=== PATIENT | female | born 1985 | race Two or more races ===

== ENCOUNTER 2019-12-23 21:17 | Emergency (ER) | payer MEDICAID ==
[2019-12-23 22:12] LABS: HEMATOCRIT 22.6 % (36.0-47.0); MEAN CORPUSCULAR HEMOGLOBIN 44.1 pg (27.0-33.4); MEAN CORPUSCULAR HGB CONC 34.4 g/dL (32.0-36.0); RED BLOOD COUNT 1.76 10^6/uL (3.72-5.28)
[2019-12-23 22:13] LABS: MEAN CORPUSCULAR VOLUME 128 fl (80-97)
[2019-12-23 22:15] LABS: HEMOGLOBIN 7.8 g/dL (12.0-15.5)
[2019-12-23 22:16] LABS: PLATELET COUNT 87 10^3/uL (150-450)
[2019-12-23 22:23] LABS: ABSOLUTE LYMPHOCYTES# (MANUAL) 1.5 10^3/uL (0.5-4.7); ABSOLUTE MONOCYTES # (MANUAL) 1.3 10^3/uL (0.1-1.4); BAND NEUTROPHILS % (MANUAL) 1 % (3-5); BASOPHILS % (MANUAL) 0 % (0-2); EOSINOPHILS % (MANUAL) 1 % (0-6); LYMPHOCYTES % (MANUAL) 7 % (13-45); MONOCYTES % (MANUAL) 6 % (3-13); NUCLEATED RED BLOOD CELLS 1 /100 WBC (0); SEGMENTED NEUTROPHILS % (MAN) 85 % (42-78); TOTAL CELLS COUNTED 100
[2019-12-23 22:24] LABS: ANISOCYTOSIS 2+; POIKILOCYTOSIS 1+; POLYCHROMASIA 1+
[2019-12-23 22:25] LABS: OVALOCYTES 1+; PLATELET COMMENT DECREASED; TEAR DROP CELLS SLIGHT
[2019-12-23 22:31] LABS: ALKALINE PHOSPHATASE 116 U/L (38-126); ANION GAP 11 (5-19); ASPARTATE AMINO TRANSFERASE 117 U/L (14-36); BILIRUBIN,DIRECT 17.6 mg/dL (0.0-0.4); BILIRUBIN,TOTAL 22.7 mg/dL (0.2-1.3); BLOOD UREA NITROGEN 15 mg/dL (7-20); CALCIUM 7.8 mg/dL (8.4-10.2); CARBON DIOXIDE 28 mmol/L (22-30); CHLORIDE 86 mmol/L (98-107); GLUCOSE 129 mg/dL (75-110); TOTAL PROTEIN 8.3 g/dL (6.3-8.2)
[2019-12-23] MEDS ORDERED: MORPHINE SULFATE 10 MG/ML INJ IV ONE (22:39)
[2019-12-23 22:46] LABS: POTASSIUM 2.6 mmol/L (3.6-5.0)
[2019-12-23 22:50] LABS: INTERNATIONAL RATION (INR) 2.13; PROTHROMBIN TIME 23.9 SEC (11.4-15.4)
[2019-12-23] MEDS ORDERED: POTASSI CL 20 MEQ/50 ML RIDER 20 MEQ/50 ML RTUPB IV SCH (23:30)
[2019-12-23] MEDS ORDERED: NORMAL SALINE 250 ML IV PRN ×2 (23:31)
[2019-12-23] MEDS ORDERED: CEFTRIAXONE 2 GM/D5W RTU 2 GM/50 ML RTUPB IV ONE (23:33)
--- NOTE | 2019-12-23 23:41 | RADIOLOGY REPORT (SQ) ---
CLINICAL INDICATION: distention/pain. . TECHNIQUE: Noncontrast spiral axial CT imaging was obtained of the abdomen and pelvis with multiplanar reconstructions. This exam was performed according to our departmental dose-optimization program, which includes automated exposure control, adjustment of the mA and/or kV according to patient size and/or use of iterative reconstruction techniques. COMPARISON: None available. CORRELATION: None. FINDINGS: Abdomen: The lung bases definite mild interstitial prominence. Dependent airspace disease particularly right lung base has appearance of atelectasis.. The heart is enlarged. No evidence of pleural or pericardial fluid. The liver is of low-attenuation and heterogeneous. It is enlarged at 20.1 cm craniocaudad.. The gallbladder contains hyperdense material. Milk of calcium (limy bile) or vicarious excretion of intravascular contrast can have a similar appearance. No inflammatory change. The pancreas is of grossly normal contour on this noncontrast examination. The spleen is top normal at 14.6 cm craniocaudad. The adrenals are poorly seen. The kidneys appear grossly normal without evidence of urolithiasis or hydronephrosis. There is no evidence of free air. Significant ascites.. No bulky adenopathy. Abdominal aorta is nonaneurysmal. Pelvis: The bowel is nonobstructed. The bowel is unopacified with oral contrast. Pelvic contents are unremarkable. The appendix is not seen.. Visualized bones are unremarkable. IMPRESSION: Imaging is degraded by patient motion, with resultant artifact. The best possible images were obtained. Large amount of ascites. Medical hepatic disease, presumed steatosis. Hepatomegaly. Borderline splenomegaly Gallbladder demonstrates hyperdense material without inflammatory change.Milk of calcium (limy bile) or vicarious excretion of intravascular contrast can have a similar appearance. . Has there been recent administration of intravascular contrast?
[2019-12-24 00:39] LABS: APPEARANCE,URINE SLIGHTLY-CLOUDY; BILIRUBIN,URINE MODERATE (NEGATIVE); COLOR,URINE AMBER; GLUCOSE, URINE 50 mg/dL (NEGATIVE); KETONES,URINE NEGATIVE (NEGATIVE); LEUKOCYTE ESTERASE,URINE TRACE (NEGATIVE); NITRITE,URINE POSITIVE (NEGATIVE); PROTEIN,URINE 30 mg/dL (NEGATIVE); URINE SPECIFIC GRAVITY 1.014
--- NOTE | 2019-12-24 00:46 | ER Document Report ---
ED General - General Chief Complaint: Abdominal Swelling Stated Complaint: ABDOMINAL PAIN Time Seen by Provider: 12/23/19 22:24 Mode of Arrival: Ambulatory Information source: Patient TRAVEL OUTSIDE OF THE [place] IN LAST 30 DAYS: No - HPI Notes: Patient comes in complaining of abdominal pain. This pain is diffuse. Is worse with movement better with rest. It is a crampy in nature and constant. It is moderate to severe. It does radiate throughout her abdomen. She has had some nausea no significant vomiting or diarrhea. She has noticed that her eyes have become yellow. She states she does drink alcohol approximately twice per week but has not drank recently. She states that her abdomen has been distended and tender for several weeks but she has not seen a physician. No previous history of liver or abdominal problems or surgeries. She denies any excessive Tylenol use. No fevers. - Related Data Allergies/Adverse Reactions: No Known Allergies Allergy (Verified 07/04/15 18:58) Past Medical History - General Information source: Patient - Social History Smoking Status: Current Every Day Smoker Chew tobacco use (# tins/day): No Frequency of alcohol use: Heavy Drug Abuse: None Family History: Reviewed & Not Pertinent - Immunizations Hx Diphtheria, Pertussis, Tetanus Vaccination: No Review of Systems - Review of Systems Constitutional: Malaise, Weakness Gastrointestinal: Abdominal pain, Nausea Skin: Change in color, Change in hair/nails -: Yes All other systems reviewed and negative Physical Exam - Vital signs Vitals: Pulse Ox 92 12/23/19 21:20 Interpretation: Tachycardic - General General appearance: Alert In distress: None - HEENT Head: Normocephalic, Atraumatic Eyes: Scleral icterus Conjunctiva: Icteric Pupils: PERRL - Respiratory Respiratory status: No respiratory distress Chest status: Nontender Breath sounds: Normal Chest palpation: Normal - Cardiovascular Rhythm: Tachycardia Heart sounds: Normal auscultation Murmur: No - Abdominal Inspection: Caput medussa Distension: Distended Bowel sounds: Hypoactive Tenderness: Tender - Back Back: Normal, Nontender - Extremities General upper extremity: Normal inspection, Nontender, Normal color, Normal ROM, Normal temperature General lower extremity: Normal inspection, Nontender, Normal color, Normal ROM, Normal temperature, Normal weight bearing. No: Oli's sign - Neurological Neuro grossly intact: Yes Cognition: Normal Orientation: AAOx4 [place] Coma Scale Eye Opening: Spontaneous [place] Coma Scale Verbal: Oriented [place] Coma Scale Motor: Obeys Commands [place] Coma Scale Total: 15 Speech: Normal Motor strength normal: LUE, RUE, LLE, RLE Sensory: Normal - Psychological Associated symptoms: Normal affect, Normal mood - Skin Skin Temperature: Warm Skin Moisture: Dry Skin Color: Jaundiced Course - Re-evaluation Re-evalutation: 12/24/19 00:48 Patient presents with an obvious distended abdomen with a fluid wave. She is jaundiced. Labs are significant for hypokalemia, anemia, and liver failure with elevated INR. Exam and labs are somewhat equivocal for spontaneous bacterial peritonitis. I favor that her white blood cell count is elevated just because of her alcoholic liver disease however I cannot totally rule out spontaneous bacterial peritonitis. Therefore I have given the patient a dose of Rocephin. I did discuss this with the GI service at [facility] who told me that they would tap her in the morning that it was okay to give her Rocephin. At this time she is slightly tachycardic but her blood pressure is stable. She is feeling better after pain medicine. She is nontoxic-appearing at this time. Patient will receive blood and potassium replacement as well. I called and discussed the case with hospitalist here. He states there is no GI on-call tonight or tomorrow. The mash tub cooker operator states she does not have any call schedule for the rest of the month but she knows that we will not have GI for December 23. Hospitalist felt that the patient was most appropriate for transfer due to her acute liver failure. I agree that this seemed like the most reasonable and best treatment for the patient. 12/24/19 00:51 - Vital Signs Vital signs: Temp Pulse Resp BP Pulse Ox 99.1 F 104 H 23 H 104/64 97 12/24/19 00:00 12/23/19 21:29 12/24/19 00:01 12/24/19 00:00 12/24/19 00:01 - Laboratory Result Diagrams: 12/23/19 21:34 12/23/19 21:34 Laboratory results interpreted by me: 12/23/19 12/23/19 12/23/19 21:34 21:34 21:34 WBC 21.0 H RBC 1.76 L Hgb 7.8 L Hct 22.6 L MCV 128 H MCH 44.1 H RDW 20.0 H Plt Count 87 L Seg Neuts % (Manual) 85 H Band Neutrophils % 1 L Lymphocytes % (Manual) 7 L Abs Neuts (Manual) 18.1 H PT Sodium 125.2 L Potassium 2.6 L* Chloride 86 L Glucose 129 H Calcium 7.8 L Total Bilirubin 22.7 H Direct Bilirubin 17.6 H AST 117 H Ammonia 65.3 H Total Protein 8.3 H Albumin 3.0 L Acetaminophen Crossmatch 12/23/19 12/23/19 12/23/19 21:34 21:34 21:34 WBC RBC Hgb Hct MCV MCH RDW Plt Count Seg Neuts % (Manual) Band Neutrophils % Lymphocytes % (Manual) Abs Neuts (Manual) PT 23.9 H Sodium Potassium Chloride Glucose Calcium Total Bilirubin Direct Bilirubin AST Ammonia Total Protein Albumin Acetaminophen < 10 L Crossmatch See Detail - Diagnostic Test Radiology reviewed: Image reviewed, Reports reviewed Critical Care Note - Critical Care Note Total time excluding time spent on procedures (mins): 50 Comments: Approximately 50 minutes of critical care time were spent taking care of this patient with liver failure, hypokalemia, and anemia. Discharge - Discharge Clinical Impression: Alcoholic liver disease, Hypokalemia Liver failure, acute Qualifiers: Hepatic coma status: without hepatic coma Qualified Code(s): K72.00 - Acute and subacute hepatic failure without coma Anemia Qualifiers: Anemia type: other cause Other causes of anemia: nutritional, other Qualified Code(s): D53.8 - Other specified nutritional anemias Condition: Serious Disposition: [facility]
[2019-12-24 01:11] VITALS: BP 101/66
[2019-12-24 13:05] LABS: PATH REVIEW PATHOLOGIST REVIEWED
== END 2019-12-24 01:54 | disposition short-term general hospital (02) ==
LOC: ER 21:17
DX: K70.9 Alcoholic liver disease, unspecified (principal); K72.00 Acute and subacute hepatic failure without coma; D53.8 Other specified nutritional anemias; E87.6 Hypokalemia; R00.0 Tachycardia, unspecified; R53.81 Other malaise; R11.0 Nausea; F17.200 Nicotine dependence, unspecified, uncomplicated
CPT/HCPCS: 99285; 96375; 96365; 86900; 86901; 36415; 36430; 86850; 80307 ×2; 82140; 84702; 83690; 85025; 85610; 80053; 81001; 86920; 74176; P9016; J2270; J3480; J0696

== ENCOUNTER 2020-02-05 05:41 | Inpatient (IN) | payer MEDICAID ==
[2020-02-05 05:58] LABS: ARTERIAL BLOOD BASE EXCESS -3.6 mmol/L; ARTERIAL BLOOD H2CO3 0.61 mmol/L (1.05-1.35); ARTERIAL BLOOD HCO3 18.1 mmol/L (20-24); ARTERIAL BLOOD O2 SATURATION 99.1 % (94-98); ARTERIAL BLOOD PH 7.57 (7.35-7.45); ARTERIAL BLOOD PO2 135.8 mmHg (80-100); ARTERIAL BLOOD TOTAL CO2 18.7 mmol/L (21-25)
[2020-02-05 05:59] LABS: ARTERIAL BLOOD FIO2 2L; ARTERIAL BLOOD PCO2 20.1 mmHg (35-45)
--- NOTE | 2020-02-05 05:59 | ER Document Report ---
ED General - General Stated Complaint: SEPSIS ALERT Time Seen by Provider: 02/05/20 05:52 Mode of Arrival: Medic Information source: Emergency Med Personnel Notes: 38-year-old female arrives with decreased level of consciousness per family. Patient is from home. Patient is followed by [facility]. She has ascites and liver alcoholic hepatitis. Patient just had 5 L of fluid drawn off last Tuesday. EMS noticed that patient had drawing withdrawing from painful stimuli and has very icterus sclera. Patient has ascites continued. She otherwise is very cachectic with jaundice. Patient was given 250 IV bolus per EMS because of hypotension. Patient's paperwork from the [facility] reveals medications including Lasix 20 gabapentin lactulose midodrine pantoprazole prednisone spironolactone and rifaximin. Patient is a current everyday smoker. Patient received suppository of Tylenol 975 per [facility]. Patient feels warm to touch and appears very cachectic and body habitus. Liver cirrhosis and ascites are quite evidenced on this patient as well as the jaundice and icteric sclera. She has dry mouth as well. TRAVEL OUTSIDE OF THE [place] IN LAST 30 DAYS: No - HPI Onset: This morning Onset/Duration: Sudden Severity: Mild Pain Level: 1 Associated symptoms: Fever, Weakness Similar symptoms previously: Yes Recently seen / treated by doctor: Yes - Related Data Allergies/Adverse Reactions: No Known Allergies Allergy (Verified 07/04/15 18:58) Past Medical History - General Information source: Emergency Med Personnel - Social History Smoking Status: Current Every Day Smoker Cigarette use (# per day): Yes Chew tobacco use (# tins/day): No Smoking Education Provided: Yes Frequency of alcohol use: unknown at this time Drug Abuse: None Lives with: Family Family History: Reviewed & Not Pertinent Patient has suicidal ideation: No - unk Patient has homicidal ideation: No - unk - Immunizations Hx Diphtheria, Pertussis, Tetanus Vaccination: No Review of Systems - Review of Systems -: Yes ROS unobtainable due to patient's medical condition Constitutional: See HPI, Fever, Weakness, Weight gain, Recent illness EENT: No symptoms reported Cardiovascular: No symptoms reported Respiratory: No symptoms reported Gastrointestinal: See HPI, Abdomen distended Genitourinary: No symptoms reported Female Genitourinary: No symptoms reported Musculoskeletal: No symptoms reported Skin: No symptoms reported Hematologic/Lymphatic: No symptoms reported Neurological/Psychological: See HPI, Confusion, Lost consciousness -: Yes All other systems reviewed and negative Physical Exam - Vital signs Interpretation: Normal, Hypotensive, Tachycardic, Tachypneic, Febrile - General General appearance: Appears well, Alert - HEENT Head: Normocephalic, Atraumatic Eyes: Normal Pupils: PERRL - Respiratory Respiratory status: No respiratory distress Chest status: Nontender Breath sounds: Normal Chest palpation: Normal - Cardiovascular Rhythm: Regular Heart sounds: Normal auscultation Murmur: No - Abdominal Inspection: Normal Distension: No distension Bowel sounds: Normal Tenderness: Nontender Organomegaly: No organomegaly - Back Back: Normal, Nontender - Extremities General upper extremity: Normal inspection, Nontender, Normal color, Normal ROM, Normal temperature General lower extremity: Normal inspection, Nontender, Normal color, Normal ROM, Normal temperature, Normal weight bearing. No: Oli's sign - Neurological Cognition: Inattentive [place] Coma Scale Motor: Withdraws to Pain Motor strength normal: No: LUE, RUE, LLE, RLE Sensory: Normal - Psychological Associated symptoms: Excessive sleeping - Skin Skin Temperature: Warm Skin Moisture: Dry Skin Color: Normal Critical Care Note - Critical Care Note Comments: pt turned over to Josefa at 0605 Discharge - Discharge Clinical Impression: Acute hepatic encephalopathy Condition: Stable Disposition: ADMITTED INPATIENT
[2020-02-05] MEDS ORDERED: NALOXONE HCL INJ/PF 0.4 MG/1 ML SDV IV ONE (06:08)
[2020-02-05] MEDS ORDERED: LACTULOSE SYRUP 20 GM/30 ML UDCUP PR ONE (06:11)
[2020-02-05 06:18] LABS: HEMATOCRIT 18.3 % (36.0-47.0); MEAN CORPUSCULAR HEMOGLOBIN 39.9 pg (27.0-33.4); PLATELET COUNT 130 10^3/uL (150-450); RED BLOOD COUNT 1.51 10^6/uL (3.72-5.28); RED CELL DISTRIBUTION WIDTH 16.8 % (11.5-14.0)
[2020-02-05 06:29] LABS: INTERNATIONAL RATION (INR) 2.43; PROTHROMBIN TIME 26.4 SEC (11.4-15.4)
[2020-02-05 06:34] LABS: ALBUMIN 2.2 g/dL (3.5-5.0); ALKALINE PHOSPHATASE 177 U/L (38-126); ANION GAP 14 (5-19); ASPARTATE AMINO TRANSFERASE 46 U/L (14-36); BILIRUBIN,DIRECT 8.6 mg/dL (0.0-0.4); BILIRUBIN,TOTAL 11.5 mg/dL (0.2-1.3); BLOOD UREA NITROGEN 36 mg/dL (7-20); CALCIUM 7.7 mg/dL (8.4-10.2); CARBON DIOXIDE 16 mmol/L (22-30); CHLORIDE 98 mmol/L (98-107); GLUCOSE 88 mg/dL (75-110); POTASSIUM 4.4 mmol/L (3.6-5.0); TOTAL PROTEIN 6.1 g/dL (6.3-8.2)
[2020-02-05] MEDS ORDERED: LACTULOSE SYRUP 20 GM/30 ML UDCUP ONE (06:42)
[2020-02-05 06:45] LABS: APPEARANCE,URINE SLIGHTLY-CLOUDY; BILIRUBIN,URINE SMALL (NEGATIVE); COLOR,URINE AMBER; GLUCOSE, URINE NEGATIVE (NEGATIVE); KETONES,URINE NEGATIVE (NEGATIVE); LEUKOCYTE ESTERASE,URINE NEGATIVE (NEGATIVE); NITRITE,URINE NEGATIVE (NEGATIVE); PROTEIN,URINE NEGATIVE (NEGATIVE); URINE SPECIFIC GRAVITY 1.018
[2020-02-05 06:55] LABS: MEAN CORPUSCULAR VOLUME 121 fl (80-97)
[2020-02-05 07:00] LABS: ABSOLUTE LYMPHOCYTES# (MANUAL) 2.8 10^3/uL (0.5-4.7); ABSOLUTE MONOCYTES # (MANUAL) 0.3 10^3/uL (0.1-1.4); BASOPHILS % (MANUAL) 0 % (0-2); EOSINOPHILS % (MANUAL) 0 % (0-6); LYMPHOCYTES % (MANUAL) 11 % (13-45); MONOCYTES % (MANUAL) 1 % (3-13); SEGMENTED NEUTROPHILS % (MAN) 88 % (42-78); TOTAL CELLS COUNTED 100
[2020-02-05 07:03] LABS: ANISOCYTOSIS 3+; BURR CELLS 3+; POIKILOCYTOSIS 3+; TOXIC GRANULATION 2+
[2020-02-05 07:04] LABS: PLATELET COMMENT ADEQUATE; SCHISTOCYTES 3+; TEAR DROP CELLS 1+
--- NOTE | 2020-02-05 07:12 | CRITICAL CARE ADMISSION REPORT ---
HPI Date:: 02/05/20 Time:: 06:40 Reason for ICU Reason:: Severe Hepatic Encephalopathy Admission Date/Time & PCP: Admission Date/Time: Primary Care Provider: HPI: 38-year-old female with a history of alcoholic hepatitis and chronic ascites. Patient recently had a paracentesis on Tuesday which drained 5 L of fluid. She is on chronic lactulose. She presented to the emergency department via EMS. Her family found her with decreased level of consciousness. In the ED, she was unresponsive and was only slightly withdrawing to pain. She was given 250 mL of IV fluid in route to the emergency department by EMS due to hypotension. On exam patient, patient was severely jaundiced with a severely distended abdomen with abdominal varices and severe muscle wasting. She had rapid shallow breathing and was otherwise unresponsive. ABG showed a significant metabolic acidosis and respiratory alkalosis. pH 7.57, PCO2 20, PaO2 135.8, HCO3 18. She has been given lactulose in the ED and we are awaiting a response. She will be admitted to the intensive care unit because of severe mental status changes, and possible impending respiratory failure. History obtained from:: Medical Record. ED physician - Diagnosis/Plan (1) Acute hepatic encephalopathy Is this a current diagnosis for this admission?: Yes Plan: Continue lactulose Continue spironolactone for profound ascites Patient may need a paracentesis. We will need to speak to family regarding goals of care given her end-stage liver disease. Social/Family History - Social History Lives with: Family Smoking Status: Current Every Day Smoker - Medication/Allergies Home Medications: Pnv with Ca,No.72/Iron/FA [ Plus Multivitamin Tab] 1 tab PO DAILY 01/08/15 Ibuprofen [Motrin 800 mg Tablet] 800 mg PO Q8 #120 tablet 01/10/15 Oxycodone HCl/Acetaminophen [Percocet 5-325 mg Tablet] 1 tab PO QID #15 tablet 07/04/15 Sulfamethoxazole/Trimethoprim [Bactrim Ds Tablet] 1 each PO BID #14 tablet 07/04/15 Allergies/Adverse Reactions: No Known Allergies Allergy (Verified 07/04/15 18:58) Review of Systems ROS unobtainable: Due to mental status Physical Exam Vital Signs: Temp Pulse Resp BP Pulse Ox 98.8 F 10 L 108/58 L 100 02/05/20 06:16 02/05/20 06:16 02/05/20 06:16 02/05/20 06:16 Intake & Output 02/03/20 02/04/20 02/05/20 06:59 06:59 06:59 Weight 50.8 kg Weight/Height Weight 50.8 kg General appearance: PRESENT: severe distress, thin, other Exam: Significant muscle wasting Neck exam: PRESENT: JVD. ABSENT: lymphadenopathy Respiratory exam: PRESENT: accessory muscle use, clear to auscultation rory, decreased breath sounds, symmetrical Cardiovascular exam: PRESENT: RRR Pulses: PRESENT: normal radial pulses, +1 pedal pulses bilateral GI/Abdominal exam: PRESENT: ascites, distended, hypoactive bowel sounds Extremities exam: ABSENT: joint swelling, pedal edema Neurological exam: PRESENT: altered. ABSENT: alert, awake Skin exam: PRESENT: dry, jaundice, petechiae Laboratory/Radiographs Laboratory Results: 02/05/20 02/05/20 05:45 05:45 Carbonic Acid 0.61 L HCO3/H2CO3 Ratio 29:1 ABG pH 7.57 H ABG pCO2 20.1 L* ABG pO2 135.8 H ABG HCO3 18.1 L ABG O2 Saturation 99.1 H ABG Base Excess -3.6 FiO2 2L Ammonia 158.4 H All labs, radiographs, diagnostic studies and EKGs were personally reviewed: Yes In addition, reports of radiographic and diagnostic studies were read: Yes Critical Time Critical Time (minutes): 74 -: The care of a critically ill patient is dynamic. This note represents a static moment in the admission process. Orders and treatments may be given simultaneously and urgently, and time is not medical center representative of the treatment process. This patient requires Critical Care secondary to life threatening organ or limb dysfunction. Without Critical Care services, the patient is at risk for increased mortality and morbidity.
[2020-02-05] MEDS ORDERED: PANTOPRAZOLE SODIUM 40 MG VIAL IV SCH (10:15)
[2020-02-05] MEDS ORDERED: NORMAL SALINE 1000 ML 1,000 ML IV PRN (10:16)
[2020-02-05] MEDS: ALBUMIN HUMAN 12.5 GM/50 ML RTUINJ IV SCH ×5 (10:52→22:46)
--- NOTE | 2020-02-05 11:09 | RADIOLOGY REPORT (SQ) ---
EXAM DESCRIPTION: KUB/ABDOMEN (SINGLE VIEW) IMAGES COMPLETED DATE/TIME: 02/05/2020 10:57 am REASON FOR STUDY: NGT placement COMPARISON: None. NUMBER OF VIEWS: One view. TECHNIQUE: Supine radiographic image of the abdomen acquired. LIMITATIONS: None. FINDINGS: BOWEL GAS PATTERN: Gas fluid levels within nondilated small bowel left lower quadrant. CALCIFICATIONS: No suspicious calcifications. SOFT TISSUES: No gross mass or suggestion of organomegaly. HARDWARE: None in the abdomen. BONES: No acute fracture. No worrisome bone lesions. OTHER: Nasogastric tube tip overlying stomach. IMPRESSION: Nasogastric tube in the stomach. TECHNICAL DOCUMENTATION: JOB ID: [id number] 2010 [employer]- All Rights Reserved Reading location - IP/workstation name: [email or web address]
[2020-02-05] MEDS: LACTULOSE SYRUP 20 GM/30 ML UDCUP NG SCH ×2 (13:07→21:17)
[2020-02-05 13:16] LABS: PATH REVIEW PATHOLOGIST REVIEWED
[2020-02-05] MEDS ORDERED: PREDNISOLONE SOD PHOS 15 MG/5 ML ORAL SYRING PO SCH (17:30)
[2020-02-05] MEDS ORDERED: (PENDING PHARMACY ID) (Midodrine Hcl [Midodrine Hcl] 10 MG) PO SCH (18:00)
[2020-02-05] MEDS ORDERED: NORMAL SALINE 250 ML IV PRN ×2 (19:25)
--- NOTE | 2020-02-05 19:52 | EKG REPORT ---
SEVERITY:- BORDERLINE ECG - SINUS TACHYCARDIA BORDERLINE PROLONGED QT INTERVAL : Confirmed by: Sun Anderson 05-Feb-2020 19:51:03
[2020-02-05] MEDS ORDERED: FUROSEMIDE INJ/PF 40 MG/4 ML SDV IV ONE (20:30)
[2020-02-05 20:32] LABS: ALBUMIN 2.5 g/dL (3.5-5.0); ALKALINE PHOSPHATASE 159 U/L (38-126); ANION GAP 16 (5-19); ASPARTATE AMINO TRANSFERASE 48 U/L (14-36); BILIRUBIN,DIRECT 9.2 mg/dL (0.0-0.4); BILIRUBIN,TOTAL 12.7 mg/dL (0.2-1.3); BLOOD UREA NITROGEN 41 mg/dL (7-20); CALCIUM 7.8 mg/dL (8.4-10.2); CARBON DIOXIDE 15 mmol/L (22-30); CHLORIDE 98 mmol/L (98-107); GLUCOSE 117 mg/dL (75-110); POTASSIUM 3.8 mmol/L (3.6-5.0); TOTAL PROTEIN 6.3 g/dL (6.3-8.2)
[2020-02-05] MEDS: BUSPIRONE HCL 10 MG TABLET PO SCH (21:16)
[2020-02-05] MEDS: MIDODRINE HCL 5 MG TABLET PO SCH (21:16)
[2020-02-05] MEDS: RIFAXIMIN 550 MG TABLET PO SCH (21:18)
[2020-02-05] MEDS: DEXMEDETOMIDINE IN 0.9 % NACL 400 MCG/100 ML RTUPB IV PRN ×2 (21:30→21:32)
[2020-02-05] MEDS: FENTANYL CITRATE INJ/PF 100 MCG/2 ML AMPUL IV PRN (22:31)
[2020-02-06] MEDS ORDERED: NOREPINEPHRINE BITARTRATE INJ/PF 4 MG/4 ML SDV IV ONE (02:41)
[2020-02-06] MEDS: DEXTROSE 5%-WATER 250 ML with NOREPINEPHRINE BITARTRATE 4 MG IV PRN ×4 (02:45→13:22)
[2020-02-06 04:17] LABS: INTERNATIONAL RATION (INR) 2.37; PROTHROMBIN TIME 25.9 SEC (11.4-15.4)
[2020-02-06 04:28] LABS: ALBUMIN 2.9 g/dL (3.5-5.0); ALKALINE PHOSPHATASE 142 U/L (38-126); ANION GAP 18 (5-19); ASPARTATE AMINO TRANSFERASE 44 U/L (14-36); BLOOD UREA NITROGEN 42 mg/dL (7-20); CALCIUM 8.4 mg/dL (8.4-10.2); CARBON DIOXIDE 15 mmol/L (22-30); CHLORIDE 102 mmol/L (98-107); GLUCOSE 121 mg/dL (75-110); POTASSIUM 3.5 mmol/L (3.6-5.0); TOTAL PROTEIN 6.7 g/dL (6.3-8.2)
[2020-02-06] MEDS: FENTANYL CITRATE INJ/PF 100 MCG/2 ML AMPUL IV PRN ×2 (04:39→07:58)
[2020-02-06 04:55] LABS: ABSOLUTE BASOPHILS # (AUTO) 0.1 10^3/uL (0.0-0.2); ABSOLUTE LYMPHOCYTES (AUTO) 1.5 10^3/uL (0.5-4.7); ABSOLUTE MONOCYTES (AUTO) 0.9 10^3/uL (0.1-1.4); ABSOLUTE NEUT (AUTO) 16.9 10^3/uL (1.7-8.2); BASOPHILS % (AUTO) 0.3 % (0-2); EOSINOPHILS % (AUTO) 0.1 % (0-6); HEMATOCRIT 25.6 % (36.0-47.0); LYMPHOCYTES % (AUTO) 7.8 % (13-45); MEAN CORPUSCULAR HGB CONC 34.3 g/dL (32.0-36.0); MONOCYTES % (AUTO) 4.7 % (3-13); RED BLOOD COUNT 2.51 10^6/uL (3.72-5.28); RED CELL DISTRIBUTION WIDTH 24.6 % (11.5-14.0); SEGMENTED NEUTROPHILS % (AUTO) 87.1 % (42-78); TOTAL CELLS COUNTED % (AUTO) 100 %; WHITE BLOOD COUNT 19.4 10^3/uL (4.0-10.5)
[2020-02-06 05:06] LABS: ANISOCYTOSIS 3+; POLYCHROMASIA SLIGHT; TOXIC GRANULATION 1+
[2020-02-06 05:08] LABS: BURR CELLS 2+; OVALOCYTES 1+; PLATELET COMMENT DECREASED; POIKILOCYTOSIS 1+; SCHISTOCYTES SLIGHT; TEAR DROP CELLS SLIGHT
[2020-02-06 05:10] LABS: PLATELET COUNT 72 10^3/uL (150-450)
[2020-02-06 05:11] LABS: HEMOGLOBIN 8.8 g/dL (12.0-15.5); MEAN CORPUSCULAR VOLUME 102 fl (80-97)
[2020-02-06] MEDS: LACTULOSE SYRUP 20 GM/30 ML UDCUP NG SCH ×3 (05:57→21:22)
[2020-02-06 06:15] LABS: ARTERIAL BLOOD H2CO3 0.66 mmol/L (1.05-1.35); ARTERIAL BLOOD HCO3 17.6 mmol/L (20-24); ARTERIAL BLOOD O2 SATURATION 96.1 % (94-98); ARTERIAL BLOOD PCO2 21.8 mmHg (35-45); ARTERIAL BLOOD PH 7.53 (7.35-7.45); ARTERIAL BLOOD PO2 70.9 mmHg (80-100); ARTERIAL BLOOD TOTAL CO2 18.3 mmol/L (21-25)
[2020-02-06 06:16] LABS: ARTERIAL BLOOD FIO2 ROOM AIR
[2020-02-06] MEDS ORDERED: ESMOLOL HCL INJ/PF 100 MG/10 ML SDV IV PRN (07:48)
[2020-02-06] MEDS: DEXMEDETOMIDINE IN 0.9 % NACL 400 MCG/100 ML RTUPB IV PRN ×2 (07:50→13:21)
--- NOTE | 2020-02-06 08:18 | PDOC CRITICAL CARE PROG REPORT ---
General Date:: 02/06/20 ICU Day:: 2 Hospital Day:: 2 Resuscitation Status: Full Code Events in the past 12 to 24 Hours:: Blood cultures positive for GNR. Ammonia down to 65 Review of systems relevant to events:: GI, hepatic Reason for ICU Addmission:: Severe Hepatic Encephalopathy. Now on levophed. - Medications: Medications reviewed and adjusted accordingly: Yes Vasopressors:: Levophed Sedation:: Precedex Physical Exam Vital Signs: Temp Pulse Resp BP Pulse Ox 35 F L 84 16 94/58 L 96 02/06/20 02:51 02/06/20 02:51 02/06/20 06:01 02/06/20 06:01 02/06/20 06:01 Intake & Output 02/05/20 02/06/20 02/07/20 06:59 06:59 06:59 Intake Total 1793 Output Total 370 45 Balance 1423 -45 Weight 50.8 kg 53 kg Weight/Height Weight 53 kg Height 5 ft 4 in General appearance: PRESENT: no acute distress, thin, other - Nearly emaciated. Head exam: PRESENT: atraumatic, normocephalic Eye exam: PRESENT: conjunctiva pink, EOMI, PERRLA, scleral icterus Ear exam: PRESENT: normal external ear exam Mouth exam: PRESENT: moist, tongue midline Respiratory exam: PRESENT: clear to auscultation rory. ABSENT: rales, rhonchi, wheezes Cardiovascular exam: PRESENT: tachycardia GI/Abdominal exam: PRESENT: ascites, distended, soft Rectal exam: PRESENT: deferred Gentrourinary exam: PRESENT: indwelling catheter Extremities exam: PRESENT: full ROM. ABSENT: calf tenderness, clubbing, pedal edema Neurological exam: PRESENT: altered, awake, CN II-XII grossly intact Skin exam: PRESENT: jaundice Laboratory/Radiographs Laboratory Results: 02/06/20 03:54 02/06/20 03:54 02/05/20 02/05/20 02/05/20 11:18 12:35 19:57 WBC Cancelled RBC Cancelled Hgb Cancelled Hct Cancelled MCV Cancelled MCH Cancelled MCHC Cancelled RDW Cancelled Plt Count Cancelled Seg Neutrophils % Carbonic Acid HCO3/H2CO3 Ratio ABG pH ABG pCO2 ABG pO2 ABG HCO3 ABG O2 Saturation ABG Base Excess FiO2 Sodium Potassium Chloride Carbon Dioxide Anion Gap BUN Creatinine Est GFR ( Amer) Glucose Lactic Acid 5.3 H 5.5 H Calcium Magnesium Total Bilirubin AST Alkaline Phosphatase Ammonia Total Protein Albumin Blood Type Antibody Screen 02/05/20 02/05/20 02/06/20 19:57 19:57 03:54 WBC RBC Hgb Hct MCV MCH MCHC RDW Plt Count Seg Neutrophils % Carbonic Acid HCO3/H2CO3 Ratio ABG pH ABG pCO2 ABG pO2 ABG HCO3 ABG O2 Saturation ABG Base Excess FiO2 Sodium 129.4 L 134.7 L Potassium 3.8 3.5 L Chloride 98 102 Carbon Dioxide 15 L 15 L Anion Gap 16 18 BUN 41 H 42 H Creatinine 2.02 H 1.88 H Est GFR ( Amer) 34 L 37 L Glucose 117 H 121 H Lactic Acid Calcium 7.8 L 8.4 Magnesium 1.8 Total Bilirubin 12.7 H 13.0 H AST 48 H 44 H Alkaline Phosphatase 159 H 142 H Ammonia Total Protein 6.3 6.7 Albumin 2.5 L 2.9 L Blood Type O NEGATIVE Antibody Screen NEGATIVE 02/06/20 02/06/20 02/06/20 03:54 03:54 05:50 WBC 19.4 H RBC 2.51 L Hgb 8.8 L D Hct 25.6 L MCV 102 H D MCH 35.0 H MCHC 34.3 RDW 24.6 H Plt Count 72 L Seg Neutrophils % 87.1 H Carbonic Acid 0.66 L HCO3/H2CO3 Ratio 26:1 ABG pH 7.53 H ABG pCO2 21.8 L ABG pO2 70.9 L ABG HCO3 17.6 L ABG O2 Saturation 96.1 ABG Base Excess -4.0 FiO2 ROOM AIR Sodium Potassium Chloride Carbon Dioxide Anion Gap BUN Creatinine Est GFR ( Amer) Glucose Lactic Acid Calcium Magnesium Total Bilirubin AST Alkaline Phosphatase Ammonia 63.9 H Total Protein Albumin Blood Type Antibody Screen Impressions: KUB X-Ray 02/05/20 09:37 IMPRESSION: Nasogastric tube in the stomach. EKG: ST All labs, radiographs, diagnostic studies and EKGs were personally reviewed: Yes In addition, reports of radiographic and diagnostic studies were read: Yes Assessment and Plan - Diagnosis (1) Hyperammonemia Is this a current diagnosis for this admission?: Yes Plan: With a level of 154 this is the main reason for the ICU admission. Ammonia now 65, lactulose effective. Still encephalopathic. There is frequently a lag of a day or two before they awaken. However is there another reason for the encephalopathy such as infection. Will start antibiotics pending cultures. (2) Ascites due to alcoholic cirrhosis Is this a current diagnosis for this admission?: Yes Plan: It is not known if she is still drinking for sure. The sense is she is but tox screen showed <10 ETOH. (3) SBP (spontaneous bacterial peritonitis) Is this a current diagnosis for this admission?: Yes Plan: This is a possibility. GNR in preliminary cultures. However abd exam is non-tender, not firm and no fever. (4) Acute hepatic encephalopathy Is this a current diagnosis for this admission?: Yes Plan: Hopefully is getting better with decrease of NH4. Plan Summary: Start empiric antibiotics awaiting BC final. Continue lactulose. Levephed for MAP > 60. Critical Time Critical Time (minutes): 35 Level of Care: ICU Anticipated discharge: Home Anticipated DC Timeframe: Other -: 1. The care of a critical patient is a dynamic process. This note is a sales support representative synopsis but static in nature. The timeframe for treatments given in order is not necessarily the actual time these treatments may have been done. 2. This patient requires critical care secondary to ongoing requirements for therapy not offered or safe outside the critical care environment. Transfer to a lower level of care will result in altered life or limb morbidity and mor tality. 3. Multidisciplinary rounds completed. 4. ABCDE bundle addressed.
[2020-02-06] MEDS: CEFEPIME 1 GM/D5W RTU 1 GM/50 ML RTUPB IV SCH ×2 (08:32→18:34)
[2020-02-06] MEDS: PANTOPRAZOLE SODIUM 40 MG TABLET.DR PO SCH (08:32)
[2020-02-06] MEDS ORDERED: (PENDING PHARMACY ID) (Spironolactone [Aldactone] 50 MG) PO SCH (10:00)
[2020-02-06] MEDS ORDERED: BENZOCAINE/MENTHOL SORE THROAT LOZENGE BUCCAL PRN (11:31)
[2020-02-06] MEDS: SPIRONOLACTONE 25 MG TABLET PO SCH (12:24)
[2020-02-06] MEDS: MIDODRINE HCL 5 MG TABLET PO SCH ×3 (12:24→18:34)
[2020-02-06] MEDS: RIFAXIMIN 550 MG TABLET PO SCH ×2 (12:24→21:23)
[2020-02-06] MEDS: BUSPIRONE HCL 10 MG TABLET PO SCH ×2 (12:25→18:34)
[2020-02-06] MEDS: ALBUMIN HUMAN 12.5 GM/50 ML RTUINJ IV SCH ×5 (12:25→23:36)
--- NOTE | 2020-02-06 20:00 | CDI QUERY ---
CDI Query CDI Review: We are seeking further clarification of documentation to reflect the severity of illness of your patient. Per Critical Care Notes: 38-year-old female with a history of alcoholic hepatitis and chronic ascites. . . presented to the emergency department via EMS. Her family found her with decreased level of consciousness. In the ED, she was unresponsive and was only slightly withdrawing to pain. Acute hepatic encephalopathy We will need to speak to family regarding goals of care given her end-stage li jimbo disease. Based on your medical judgement, can you further clarify in the Progress Notes: Acute hepatic encephalopathy with coma Acute hepatic encephalopathy without coma Unable to determine Other Thank you for your consideration. RAYMOND Goldstein RN Clinical Hardness Tester Physician Advisor
[2020-02-06] MEDS ORDERED: POTASSIUM CHLORIDE 20 MEQ PACKET PO ONE (22:22)
[2020-02-06] MEDS: MAGNESIUM SULFATE/D5W 1 GM/100 ML RTUPB IV SCH (23:36)
[2020-02-07 00:06] LABS: ANION GAP 14 (5-19); BLOOD UREA NITROGEN 43 mg/dL (7-20); CALCIUM 8.7 mg/dL (8.4-10.2); CARBON DIOXIDE 18 mmol/L (22-30); CHLORIDE 104 mmol/L (98-107); GLUCOSE 138 mg/dL (75-110); POTASSIUM 3.1 mmol/L (3.6-5.0)
[2020-02-07] MEDS: ALBUMIN HUMAN 12.5 GM/50 ML RTUINJ IV SCH ×2 (00:13→00:45)
[2020-02-07] MEDS: MAGNESIUM SULFATE/D5W 1 GM/100 ML RTUPB IV SCH (00:45)
[2020-02-07] MEDS: FENTANYL CITRATE INJ/PF 100 MCG/2 ML AMPUL IV PRN (01:44)
[2020-02-07 04:19] LABS: ABSOLUTE BASOPHILS # (AUTO) 0.1 10^3/uL (0.0-0.2); ABSOLUTE EOSINOPHILS # (AUTO) 0.1 10^3/uL (0.0-0.6); ABSOLUTE LYMPHOCYTES (AUTO) 1.7 10^3/uL (0.5-4.7); ABSOLUTE NEUT (AUTO) 15.4 10^3/uL (1.7-8.2); BASOPHILS % (AUTO) 0.6 % (0-2); EOSINOPHILS % (AUTO) 0.6 % (0-6); HEMATOCRIT 24.5 % (36.0-47.0); HEMOGLOBIN 8.7 g/dL (12.0-15.5); LYMPHOCYTES % (AUTO) 9.3 % (13-45); MEAN CORPUSCULAR HEMOGLOBIN 35.8 pg (27.0-33.4); MEAN CORPUSCULAR HGB CONC 35.5 g/dL (32.0-36.0); MEAN CORPUSCULAR VOLUME 101 fl (80-97); MONOCYTES % (AUTO) 5.2 % (3-13); RED BLOOD COUNT 2.43 10^6/uL (3.72-5.28); RED CELL DISTRIBUTION WIDTH 25.5 % (11.5-14.0); SEGMENTED NEUTROPHILS % (AUTO) 84.3 % (42-78); TOTAL CELLS COUNTED % (AUTO) 100 %; WHITE BLOOD COUNT 18.3 10^3/uL (4.0-10.5)
[2020-02-07 04:30] LABS: INTERNATIONAL RATION (INR) 2.87
[2020-02-07 04:39] LABS: PLATELET COUNT 72 10^3/uL (150-450)
[2020-02-07 04:40] LABS: ALBUMIN 3.5 g/dL (3.5-5.0); ALKALINE PHOSPHATASE 116 U/L (38-126); ANION GAP 14 (5-19); ASPARTATE AMINO TRANSFERASE 34 U/L (14-36); BILIRUBIN,TOTAL 13.1 mg/dL (0.2-1.3); BLOOD UREA NITROGEN 41 mg/dL (7-20); CALCIUM 8.8 mg/dL (8.4-10.2); CARBON DIOXIDE 18 mmol/L (22-30); CHLORIDE 106 mmol/L (98-107); GLUCOSE 136 mg/dL (75-110); PHOSPHORUS 3.7 mg/dL (2.5-4.5); POTASSIUM 3.5 mmol/L (3.6-5.0); TOTAL PROTEIN 6.7 g/dL (6.3-8.2)
[2020-02-07] MEDS ORDERED: POTASSI CL 20 MEQ/50 ML RIDER 20 MEQ/50 ML RTUPB IV ONE (04:54)
[2020-02-07] MEDS: LACTULOSE SYRUP 20 GM/30 ML UDCUP NG SCH ×4 (05:16→23:08)
[2020-02-07] MEDS: CEFEPIME 1 GM/D5W RTU 1 GM/50 ML RTUPB IV SCH ×2 (05:17→17:17)
[2020-02-07 05:29] LABS: ANISOCYTOSIS 3+; BURR CELLS 1+; OVALOCYTES SLIGHT; PLATELET COMMENT DECREASED; POIKILOCYTOSIS 1+; POLYCHROMASIA SLIGHT; SCHISTOCYTES SLIGHT; TEAR DROP CELLS SLIGHT
[2020-02-07] MEDS: DEXTROSE 5%-WATER 250 ML with NOREPINEPHRINE BITARTRATE 4 MG IV PRN ×2 (06:43)
[2020-02-07] MEDS: DEXMEDETOMIDINE IN 0.9 % NACL 400 MCG/100 ML RTUPB IV PRN (06:43)
[2020-02-07] MEDS: PANTOPRAZOLE SODIUM 40 MG TABLET.DR PO SCH (09:23)
[2020-02-07] MEDS: SPIRONOLACTONE 25 MG TABLET PO SCH (09:36)
[2020-02-07] MEDS: MIDODRINE HCL 5 MG TABLET PO SCH ×3 (09:36→17:19)
[2020-02-07] MEDS: RIFAXIMIN 550 MG TABLET PO SCH ×2 (09:37→21:19)
[2020-02-07] MEDS: BUSPIRONE HCL 10 MG TABLET PO SCH ×2 (09:37→17:17)
--- NOTE | 2020-02-07 09:37 | PDOC CRITICAL CARE PROG REPORT ---
General Date:: 02/07/20 ICU Day:: 2 Hospital Day:: 2 Resuscitation Status: Full Code Events in the past 12 to 24 Hours:: More cooperative with Precedex. BC growing key tovar. Review of systems relevant to events:: Hepatic, GI Reason for ICU Addmission:: Severe Hepatic Encephalopathy. Now on levophed. - Medications: Medications reviewed and adjusted accordingly: Yes Vasopressors:: Levophed Sedation:: Precedex Physical Exam Vital Signs: Temp Pulse Resp BP Pulse Ox 96.6 F L 78 18 91/56 L 96 02/07/20 07:56 02/07/20 07:56 02/07/20 07:56 02/07/20 07:56 02/07/20 07:56 Intake & Output 02/06/20 02/07/20 02/08/20 06:59 06:59 06:59 Intake Total 1793 1007 Output Total 370 1975 350 Balance 1423 -968 -350 Weight 53 kg 53.1 kg Weight/Height Weight 53.1 kg Height 5 ft 4 in General appearance: PRESENT: no acute distress, thin Head exam: PRESENT: atraumatic, normocephalic Eye exam: PRESENT: conjunctiva pink, EOMI, PERRLA. ABSENT: scleral icterus Ear exam: PRESENT: normal external ear exam Mouth exam: PRESENT: dry mucosa Neck exam: ABSENT: carotid bruit, JVD, lymphadenopathy, thyromegaly Respiratory exam: PRESENT: clear to auscultation rory, decreased breath sounds. ABSENT: rales, rhonchi, wheezes Cardiovascular exam: PRESENT: RRR. ABSENT: diastolic murmur, rubs, systolic murmur GI/Abdominal exam: PRESENT: ascites, diminished bowel sounds, distended, soft Rectal exam: PRESENT: deferred Gentrourinary exam: PRESENT: indwelling catheter Extremities exam: PRESENT: full ROM, other - Emaciated.. ABSENT: calf tenderness, clubbing, pedal edema Musculoskeletal exam: PRESENT: normal inspection Neurological exam: PRESENT: CN II-XII grossly intact, other - Sedated Skin exam: PRESENT: dry, intact, warm. ABSENT: cyanosis, rash Laboratory/Radiographs Laboratory Results: 02/07/20 04:00 02/07/20 04:00 02/06/20 02/07/20 02/07/20 23:27 04:00 04:00 WBC RBC Hgb Hct MCV MCH MCHC RDW Plt Count Seg Neutrophils % Sodium 136.2 L 138.0 Potassium 3.1 L 3.5 L Chloride 104 106 Carbon Dioxide 18 L 18 L Anion Gap 14 14 BUN 43 H 41 H Creatinine 1.68 H 1.51 H Est GFR ( Amer) 42 L 48 L Glucose 138 H 136 H Calcium 8.7 8.8 Phosphorus 3.7 Magnesium 2.7 H Total Bilirubin 13.1 H AST 34 Alkaline Phosphatase 116 Ammonia 69.6 H Total Protein 6.7 Albumin 3.5 02/07/20 04:00 WBC 18.3 H RBC 2.43 L Hgb 8.7 L Hct 24.5 L MCV 101 H MCH 35.8 H MCHC 35.5 RDW 25.5 H Plt Count 72 L Seg Neutrophils % 84.3 H Sodium Potassium Chloride Carbon Dioxide Anion Gap BUN Creatinine Est GFR ( Amer) Glucose Calcium Phosphorus Magnesium Total Bilirubin AST Alkaline Phosphatase Ammonia Total Protein Albumin 02/05/20 06:49 Blood Blood Culture - Final Serratia Marcescens Impressions: KUB X-Ray 02/05/20 09:37 IMPRESSION: Nasogastric tube in the stomach. All labs, radiographs, diagnostic studies and EKGs were personally reviewed: Yes In addition, reports of radiographic and diagnostic studies were read: Yes Assessment and Plan - Diagnosis (1) Hyperammonemia Is this a current diagnosis for this admission?: Yes Plan: Lactulose increased as ammonia has gone up. Has lactulose diarreah. (2) Ascites due to alcoholic cirrhosis Is this a current diagnosis for this admission?: Yes Plan: Distended but not firm (3) SBP (spontaneous bacterial peritonitis) Is this a current diagnosis for this admission?: Yes Plan: BC growing serratia and on 4th gen cephalosporin pending sensitivities. (4) Acute hepatic encephalopathy Is this a current diagnosis for this admission?: Yes Plan: Never had coma but has been altered enough to need Precedex. Plan Summary: We will keep on cefepime pending sesitivities, repeat NH4 in AM. Try to get levophed off and downgrade. Critical Time Critical Time (minutes): 35 Level of Care: ICU Anticipated discharge: Home Anticipated DC Timeframe: Other -: 1. The care of a critical patient is a dynamic process. This note is a business center representative synopsis but static in nature. The timeframe for treatments given in order is not necessarily the actual time these treatments may have been done. 2. This patient requires critical care secondary to ongoing requirements for therapy not offered or safe outside the critical care environment. Transfer to a lower level of care will result in altered life or limb morbidity and mortality. 3. Multidisciplinary rounds completed. 4. ABCDE bundle addressed.
[2020-02-07] MEDS ORDERED: NORMAL SALINE 250 ML IV PRN ×2 (19:35)
[2020-02-07 20:49] LABS: ANION GAP 14 (5-19); BLOOD UREA NITROGEN 42 mg/dL (7-20); CALCIUM 8.8 mg/dL (8.4-10.2); CARBON DIOXIDE 16 mmol/L (22-30); CHLORIDE 107 mmol/L (98-107); GLUCOSE 127 mg/dL (75-110); POTASSIUM 3.5 mmol/L (3.6-5.0)
[2020-02-08] MEDS: ALBUMIN HUMAN 12.5 GM/50 ML RTUINJ IV SCH ×2 (01:07→02:04)
[2020-02-08] MEDS ORDERED: FUROSEMIDE INJ/PF 40 MG/4 ML SDV IV ONE ×2 (03:00→15:30)
[2020-02-08 04:47] LABS: HEMATOCRIT 24.5 % (36.0-47.0); HEMOGLOBIN 8.5 g/dL (12.0-15.5); MEAN CORPUSCULAR HEMOGLOBIN 35.5 pg (27.0-33.4); MEAN CORPUSCULAR HGB CONC 34.5 g/dL (32.0-36.0); MEAN CORPUSCULAR VOLUME 103 fl (80-97); PARTIAL THROMBOPLASTIN TIME 48.2 SEC (23.5-35.8); PROTHROMBIN TIME 25.3 SEC (11.4-15.4); RED BLOOD COUNT 2.38 10^6/uL (3.72-5.28); RED CELL DISTRIBUTION WIDTH 25.8 % (11.5-14.0); WHITE BLOOD COUNT 20.2 10^3/uL (4.0-10.5)
[2020-02-08 04:52] LABS: PLATELET COUNT 69 10^3/uL (150-450)
[2020-02-08 04:57] LABS: ALBUMIN 3.4 g/dL (3.5-5.0); ALKALINE PHOSPHATASE 109 U/L (38-126); ANION GAP 18 (5-19); ASPARTATE AMINO TRANSFERASE 39 U/L (14-36); BILIRUBIN,DIRECT 6.6 mg/dL (0.0-0.4); BILIRUBIN,TOTAL 10.7 mg/dL (0.2-1.3); BLOOD UREA NITROGEN 42 mg/dL (7-20); CARBON DIOXIDE 14 mmol/L (22-30); CHLORIDE 107 mmol/L (98-107); GLUCOSE 142 mg/dL (75-110); PHOSPHORUS 3.4 mg/dL (2.5-4.5); POTASSIUM 3.1 mmol/L (3.6-5.0); TOTAL PROTEIN 6.6 g/dL (6.3-8.2)
[2020-02-08] MEDS: CEFEPIME 1 GM/D5W RTU 1 GM/50 ML RTUPB IV SCH ×2 (05:25→17:28)
[2020-02-08] MEDS: LACTULOSE SYRUP 20 GM/30 ML UDCUP NG SCH ×3 (05:25→17:28)
[2020-02-08 05:26] LABS: ABSOLUTE MONOCYTES # (MANUAL) 0.4 10^3/uL (0.1-1.4); BAND NEUTROPHILS % (MANUAL) 1 % (3-5); BASOPHILS % (MANUAL) 0 % (0-2); EOSINOPHILS % (MANUAL) 0 % (0-6); LYMPHOCYTES % (MANUAL) 10 % (13-45); MONOCYTES % (MANUAL) 2 % (3-13); SEGMENTED NEUTROPHILS % (MAN) 87 % (42-78); TOTAL CELLS COUNTED 100
[2020-02-08 05:29] LABS: ANISOCYTOSIS 3+; POIKILOCYTOSIS 1+; POLYCHROMASIA SLIGHT
[2020-02-08 05:30] LABS: BURR CELLS 1+; OVALOCYTES SLIGHT; PLATELET COMMENT ADEQUATE; SCHISTOCYTES SLIGHT; TEAR DROP CELLS SLIGHT
[2020-02-08] MEDS ORDERED: NORMAL SALINE 250 ML IV PRN ×2 (06:24)
[2020-02-08] MEDS ORDERED: POTASSIUM CHLORIDE 20 MEQ PACKET PO ONE (06:26)
[2020-02-08] MEDS: FENTANYL CITRATE INJ/PF 100 MCG/2 ML AMPUL IV PRN ×4 (06:55→17:52)
[2020-02-08] MEDS: PANTOPRAZOLE SODIUM 40 MG TABLET.DR PO SCH (08:00)
--- NOTE | 2020-02-08 08:29 | RADIOLOGY REPORT (SQ) ---
EXAM DESCRIPTION: CHEST SINGLE VIEW IMAGES COMPLETED DATE/TIME: 02/08/2020 7:04 am REASON FOR STUDY: congestion COMPARISON: 02/08/2020 EXAM PARAMETERS: NUMBER OF VIEWS: One view. TECHNIQUE: Single frontal radiographic view of the chest acquired. RADIATION DOSE: NA LIMITATIONS: None. FINDINGS: LUNGS AND PLEURA: Low lung volumes with patchy multifocal airspace disease. No large effu ronnie. No pneumothorax. MEDIASTINUM AND HILAR STRUCTURES: No masses. Contour normal. HEART AND VASCULAR STRUCTURES: Heart normal in size. Normal vasculature. BONES: No acute findings. HARDWARE: Enteric tube tip overlies distal stomach. OTHER: No other significant finding. IMPRESSION: Low lung volumes with patchy multifocal airspace disease suggestive of multifocal infect ion. No significant effusion. TECHNICAL DOCUMENTATION: JOB ID: [id number] 2010 [employer]- All Rights Reserved Reading location - IP/workstation name: [email or web address]
[2020-02-08] MEDS: RIFAXIMIN 550 MG TABLET PO SCH ×2 (09:37→22:00)
[2020-02-08] MEDS: BUSPIRONE HCL 10 MG TABLET PO SCH ×2 (09:37→17:28)
[2020-02-08] MEDS: SPIRONOLACTONE 25 MG TABLET PO SCH (09:37)
[2020-02-08] MEDS: MIDODRINE HCL 5 MG TABLET PO SCH ×3 (09:37→17:28)
--- NOTE | 2020-02-08 12:25 | PDOC CRITICAL CARE PROG REPORT ---
General Date:: 02/08/20 ICU Day:: 3 Hospital Day:: 3 Resuscitation Status: Full Code Events in the past 12 to 24 Hours:: Off levophed and precedex. Review of systems relevant to events:: GI, CV Reason for ICU Addmission:: Severe Hepatic Encephalopathy. Now off levophed - Medications: Medications reviewed and adjusted accordingly: Yes Vasopressors:: None Sedation:: None Physical Exam Vital Signs: Temp Pulse Resp BP Pulse Ox 99.9 F 116 H 36 H 116/67 93 02/08/20 11:39 02/08/20 11:40 02/08/20 11:40 02/08/20 11:40 02/08/20 11:40 Intake & Output 02/07/20 02/08/20 02/09/20 06:59 06:59 06:59 Intake Total 1057 1362 217 Output Total 0937 2295 10 Wxtyeay -914 -369 207 Weight 53.1 kg 54.3 kg Weight/Height Weight 54.3 kg Height 5 ft 4 in General appearance: PRESENT: no acute distress, thin, other - Emaciated. Head exam: PRESENT: atraumatic, normocephalic Eye exam: PRESENT: conjunctiva pink, EOMI, PERRLA. ABSENT: scleral icterus Ear exam: PRESENT: normal external ear exam Mouth exam: PRESENT: moist, tongue midline Neck exam: ABSENT: carotid bruit, JVD, lymphadenopathy, thyromegaly Respiratory exam: PRESENT: clear to auscultation rory, decreased breath sounds. ABSENT: rales, rhonchi, wheezes Cardiovascular exam: PRESENT: RRR, tachycardia. ABSENT: diastolic murmur, rubs, systolic murmur GI/Abdominal exam: PRESENT: ascites, distended, hypoactive bowel sounds, soft Rectal exam: PRESENT: deferred Gentrourinary exam: PRESENT: indwelling catheter Extremities exam: PRESENT: full ROM. ABSENT: calf tenderness, clubbing, pedal edema Musculoskeletal exam: PRESENT: normal inspection Neurological exam: PRESENT: alert, altered, awake, oriented to person, CN II-XII grossly intact Psychiatric exam: PRESENT: agitated Skin exam: PRESENT: dry, intact, warm. ABSENT: cyanosis, rash Tubes/Lines: PRESENT: Nasogastic Tube Laboratory/Radiographs Laboratory Results: 02/08/20 04:22 02/08/20 04:22 02/05/20 02/07/20 02/08/20 19:57 20:27 04:22 WBC 20.2 H RBC 2.38 L Hgb 8.5 L Hct 24.5 L MCV 103 H MCH 35.5 H MCHC 34.5 RDW 25.8 H Plt Count 69 L Seg Neutrophils % Not Reportable Sodium 136.9 L Potassium 3.5 L Chloride 107 Carbon Dioxide 16 L Anion Gap 14 BUN 42 H Creatinine 1.42 H Est GFR ( Amer) 51 L Glucose 127 H Calcium 8.8 Phosphorus Magnesium Total Bilirubin AST Alkaline Phosphatase Ammonia Total Protein Albumin Blood Type O NEGATIVE Antibody Screen NEGATIVE 02/08/20 02/08/20 02/08/20 04:22 04:22 07:12 WBC RBC Hgb Hct MCV MCH MCHC RDW Plt Count Seg Neutrophils % Sodium 139.1 Potassium 3.1 L Chloride 107 Carbon Dioxide 14 L Anion Gap 18 BUN 42 H Creatinine 1.31 H Est GFR ( Amer) 56 L Glucose 142 H Calcium 9.0 Phosphorus 3.4 Magnesium 2.5 H Total Bilirubin 10.7 H AST 39 H Alkaline Phosphatase 109 Ammonia 36.8 H Total Protein 6.6 Albumin 3.4 L Blood Type O NEGATIVE Antibody Screen NEGATIVE 02/05/20 06:49 Blood Blood Culture - Final Serratia Marcescens Impressions: KUB X-Ray 02/05/20 09:37 IMPRESSION: Nasogastric tube in the stomach. Chest X-Ray 02/08/20 05:00 IMPRESSION: Low lung volumes with patchy multifocal airspace disease suggestive of multifocal infection. No significant effusion. All labs, radiographs, diagnostic studies and EKGs were personally reviewed: Yes In addition, reports of radiographic and diagnostic studies were read: Yes Assessment and Plan - Diagnosis (1) Hyperammonemia Is this a current diagnosis for this admission?: Yes Plan: Level down to 37. More awake and alert. Occasionally yelling out. (2) Ascites due to alcoholic cirrhosis Is this a current diagnosis for this admission?: Yes Plan: She will need a paracentesis. Her INR is too high at 2.3 and PLT too low at 67. Getting transfused both. (3) SBP (spontaneous bacterial peritonitis) Is this a current diagnosis for this admission?: Yes Plan: Growing serratia in blood. S to cefepime (4) Acute hepatic encephalopathy Is this a current diagnosis for this admission?: Yes Plan: Resolving Plan Summary: Ideally assuming she has corrected her coagulopathy she will need a paracentesis. If she holds BP she can be downgraded. Critical Time Critical Time (minutes): 35 Level of Care: ICU Anticipated discharge: Home Anticipated DC Timeframe: Other -: 1. The care of a critical patient is a dynamic process. This note is a repre sentative synopsis but static in nature. The timeframe for treatments given in order is not necessarily the actual time these treatments may have been done. 2. This patient requires critical care secondary to ongoing requirements for therapy not offered or safe outside the critical care environment. Transfer to a lower level of care will result in altered life or limb morbidity and mortality. 3. Multidisciplinary rounds completed. 4. ABCDE bundle addressed.
[2020-02-08] MEDS ORDERED: POTASSIUM CHLORIDE 20 MEQ PACKET NG ONE (13:15)
[2020-02-08] MEDS ORDERED: METOPROLOL TARTRATE PF/INJ 5 MG/5 ML SDV IV PRN ×2 (17:15→21:10)
--- NOTE | 2020-02-08 21:35 | RADIOLOGY REPORT (SQ) ---
EXAM DESCRIPTION: XR ABDOMEN 1 VIEW (KUB) COMPLETED DATE/TME: 02/08/2020 00:00 CLINICAL HISTORY: 34 years, Female, NGT COMPARISON: February 05, 2020 NUMBER OF VIEWS: 1 TECHNIQUE: Portable AP supine view the abdomen was obtained at 8:43 PM LIMITATIONS: None. FINDINGS: Nasogastric tube tip terminates in the region of the distal gastric body as before. There is small bowel dilation up to 5.3 cm as compared to 3.9 cm previously. There is no gross evidence of pneumoperitoneum. There is increased density along the periphery of the abdomen bilaterally, presumably relating to ascites as noted on prior CT. No definite acute bony abnormality. No definite opaque urinary tract calculus. IMPRESSION: 1. Stable nasogastric tube placement terminating in the region of the distal stomach. 2. Worsening small bowel dilation, which could be on the basis of a worsening ileus or obstruction. There is also evidence of ascites. copyright 2010 [employer]- All Rights Reserved
[2020-02-09] MEDS: LACTULOSE SYRUP 20 GM/30 ML UDCUP NG SCH ×5 (00:10→23:02)
[2020-02-09] MEDS ORDERED: METOPROLOL TARTRATE PF/INJ 5 MG/5 ML SDV IV ONE ×2 (00:58→01:00)
[2020-02-09] MEDS ORDERED: METOPROLOL TARTRATE PF/INJ 5 MG/5 ML SDV IV PRN (00:59)
[2020-02-09] MEDS: FENTANYL CITRATE INJ/PF 100 MCG/2 ML AMPUL IV PRN (02:27)
[2020-02-09 05:27] LABS: ANION GAP 16 (5-19); BLOOD UREA NITROGEN 38 mg/dL (7-20); CALCIUM 9.6 mg/dL (8.4-10.2); CARBON DIOXIDE 17 mmol/L (22-30); CHLORIDE 115 mmol/L (98-107); GLUCOSE 99 mg/dL (75-110); POTASSIUM 3.5 mmol/L (3.6-5.0)
[2020-02-09] MEDS: METOPROLOL TARTRATE PF/INJ 5 MG/5 ML SDV IV PRN ×4 (06:04→23:12)
[2020-02-09] MEDS: CEFEPIME 1 GM/D5W RTU 1 GM/50 ML RTUPB IV SCH ×2 (06:05→18:15)
--- NOTE | 2020-02-09 06:58 | RADIOLOGY REPORT (SQ) ---
ABDOMINAL RADIOGRAPH: 02/09/2020 5:56 AM CDT COMPARISON: Abdominal radiograph performed 02/08/2020 TECHNIQUE: A single radiograph of the abdomen was obtained. HISTORY: 34-year old with abdominal pain. FINDINGS: Only the upper abdomen was included on this examination. The visualized bowel gas pattern is nonspecific and nonobstructive. No abnormal intra-abdominal calcifications are seen. There are no findings to suggest organomegaly. There are bibasilar airspace opacities present. A nasogastric tube tip is seen overlying the right upper abdomen, likely at the proximal duodenum or pylorus. IMPRESSION: A nasogastric tube tip is seen overlying the right upper abdomen, likely at the proximal duodenum or pylorus.
[2020-02-09 07:49] LABS: HEMATOCRIT 25.6 % (36.0-47.0); HEMOGLOBIN 8.6 g/dL (12.0-15.5); MEAN CORPUSCULAR HEMOGLOBIN 35.3 pg (27.0-33.4); MEAN CORPUSCULAR HGB CONC 33.5 g/dL (32.0-36.0); MEAN CORPUSCULAR VOLUME 105 fl (80-97); RED BLOOD COUNT 2.43 10^6/uL (3.72-5.28); RED CELL DISTRIBUTION WIDTH 26.4 % (11.5-14.0); WHITE BLOOD COUNT 26.5 10^3/uL (4.0-10.5)
[2020-02-09 08:06] LABS: INTERNATIONAL RATION (INR) 2.51; PROTHROMBIN TIME 27.1 SEC (11.4-15.4)
[2020-02-09 08:16] LABS: PLATELET COUNT 140 10^3/uL (150-450)
--- NOTE | 2020-02-09 08:18 | RADIOLOGY REPORT (SQ) ---
EXAM DESCRIPTION: KUB/ABDOMEN (SINGLE VIEW) IMAGES COMPLETED DATE/TIME: 02/09/2020 7:01 am REASON FOR STUDY: NGT placement. COMPARISON: Abdomen KUB same date 0608 hours. NUMBER OF VIEWS: One view. TECHNIQUE: Supine radiographic image of the abdomen acquired. LIMITATIONS: None. FINDINGS: BOWEL GAS PATTERN: Persistent gas in the gastric lumen. Relative paucity of bowel gas dis tally. CALCIFICATIONS: No suspicious calcifications. SOFT TISSUES: No gross mass or suggestion of organomegaly. HARDWARE: Esophagogastric tube is below the diaphragm within the stomach lumen. Has been advanced sl ightly, however remains in the gastric lumen. BONES: No acute fracture. No worrisome bone lesions. OTHER: No other significant finding. IMPRESSION: Esophagogastric tube remains in the gastric lumen. TECHNICAL DOCUMENTATION: JOB ID: [id number] 2010 [employer]- All Rights Reserved Reading location - IP/workstation name: [email or web address]
[2020-02-09 08:21] LABS: ABSOLUTE LYMPHOCYTES# (MANUAL) 0.5 10^3/uL (0.5-4.7); ABSOLUTE MONOCYTES # (MANUAL) 0.8 10^3/uL (0.1-1.4); BAND NEUTROPHILS % (MANUAL) 1 % (3-5); BASOPHILS % (MANUAL) 0 % (0-2); EOSINOPHILS % (MANUAL) 0 % (0-6); LYMPHOCYTES % (MANUAL) 2 % (13-45); MONOCYTES % (MANUAL) 3 % (3-13); SEGMENTED NEUTROPHILS % (MAN) 94 % (42-78); TOTAL CELLS COUNTED 100
[2020-02-09 08:24] LABS: ANISOCYTOSIS 3+; BURR CELLS SLIGHT; PLATELET COMMENT DECREASED; POLYCHROMASIA SLIGHT; TOXIC GRANULATION 1+
[2020-02-09] MEDS: BUSPIRONE HCL 10 MG TABLET PO SCH ×2 (11:53→18:15)
[2020-02-09] MEDS: SPIRONOLACTONE 25 MG TABLET PO SCH (11:53)
[2020-02-09] MEDS: FUROSEMIDE 20 MG TABLET PO SCH (11:53)
[2020-02-09] MEDS: PANTOPRAZOLE SODIUM 40 MG TABLET.DR PO SCH (11:53)
[2020-02-09] MEDS: RIFAXIMIN 550 MG TABLET PO SCH ×2 (11:54→23:02)
[2020-02-09] MEDS: MIDODRINE HCL 5 MG TABLET PO SCH ×3 (11:54→18:14)
[2020-02-09] MEDS ORDERED: PHYTONADIONE 5 MG TABLET NG ONE (12:00)
[2020-02-09] MEDS: POTASSIUM CHLORIDE 20 MEQ PACKET NG SCH ×2 (13:38→23:02)
--- NOTE | 2020-02-09 13:45 | PDOC PROGRESS REPORT ---
Subjective Progress Note for:: 02/09/20 Reason For Visit: SEVERE HEPATIC ENCEPHALOPATHY Physical Exam Vital Signs: Temp Pulse Resp BP Pulse Ox 99.0 F 127 H 40 H 124/74 98 02/09/20 05:37 02/09/20 07:00 02/09/20 13:05 02/09/20 06:38 02/09/20 13:05 Intake & Output 02/08/20 02/09/20 02/10/20 06:59 06:59 06:59 Intake Total 1412 636 50 Output Total 2295 810 Balance -883 -174 50 Weight 54.3 kg 54.3 kg Respiratory exam: PRESENT: tachypnea Cardiovascular exam: PRESENT: tachycardia GI/Abdominal exam: PRESENT: distended Extremities exam: ABSENT: +1 edema Neurological exam: PRESENT: altered, awake Results Laboratory Results: 02/09/20 06:44 02/09/20 04:24 02/08/20 02/09/20 02/09/20 07:12 04:24 04:24 WBC RBC Hgb Hct MCV MCH MCHC RDW Plt Count Seg Neutrophils % Sodium 148.2 H Potassium 3.5 L Chloride 115 H Carbon Dioxide 17 L Anion Gap 16 BUN 38 H Creatinine 1.25 Est GFR ( Amer) 59 L Glucose 99 Calcium 9.6 Magnesium 2.3 Ammonia 49.0 H Blood Type O NEGATIVE Antibody Screen NEGATIVE 02/09/20 06:44 WBC 26.5 H RBC 2.43 L Hgb 8.6 L Hct 25.6 L MCV 105 H MCH 35.3 H MCHC 33.5 RDW 26.4 H Plt Count 140 L D Seg Neutrophils % Not Reportable Sodium Potassium Chloride Carbon Dioxide Anion Gap BUN Creatinine Est GFR ( Amer) Glucose Calcium Magnesium Ammonia Blood Type Antibody Screen Impressions: Chest X-Ray 02/08/20 05:00 IMPRESSION: Low lung volumes with patchy multifocal airspace disease suggestive of multifocal infection. No significant effusion. KUB X-Ray 02/09/20 07:40 IMPRESSION: Esophagogastric tube remains in the gastric lumen. Assessment and Plan - Diagnosis (1) Acute hepatic encephalopathy Is this a current diagnosis for this admission?: Yes Plan: 02/09/2020-the patient was admitted with an ammonia level of 158. With aggressive lactulose it is greatly improved. The patient was on rifaximin chronically. She is confused today. It is possible it is related to a different process. She is covered for spontaneous bacterial peritonitis but there is limited gram-positive coverage. The vancomycin will help this. The only thing not covered might be atypical bacteria. We will monitor her progress with the addition of vancomycin. (2) Ascites due to alcoholic cirrhosis Is this a current diagnosis for this admission?: Yes (3) Hyperammonemia Is this a current diagnosis for this admission?: Yes Plan: 02/09/2020-ammonia level was down to 38 but today it is up slightly at 49. I will recheck tomorrow. May need to increase lactulose. (4) SBP (spontaneous bacterial peritonitis) Is this a current diagnosis for this admission?: Yes Plan: 02/09/2020-continue cefepime and rifaximin. Plan for paracentesis when platelet count and INR are acceptable. (5) Neutrophilic leukocytosis Is this a current diagnosis for this admission?: Yes Plan: 02/09/2020-white blood cell count was improving slowly. On admission it was 25. Over the last several days it dropped to 18.3 but has been rising. Today it is 26.5 which is higher than the admission white blood cell count. This is concerning for some infection that is not currently being covered. Cefepime and rifaximin will cover spontaneous bacterial peritonitis as well as gram-negative pneumonias. We will add vancomycin as noted above. Effective treatment of infection should improve the white blood cell count. (6) Acute respiratory failure with hypoxia Is this a current diagnosis for this admission?: Yes Plan: 02/09/2020-the patient's mother reports that she was able to carry on a conversation and was on nasal cannula yesterday. The BiPAP is being used to help improve aeration. Her tachypnea was causing extremely shallow respiration s. She is maintaining reasonable saturations currently. She is on diuretics and I am hoping that the addition of vancomycin will help. Her abdomen is distended with ascites but is not firm. It is soft enough that I believe diaphragmatic excursion is unimpeded or barely impeded. We will continue to monitor closely. (7) Pneumonia of both lungs Qualifiers: Pneumonia type: due to unspecified organism Lung location: unspecified part of lung Qualified Code(s): J18.9 - Pneumonia, unspecified organism Is this a current diagnosis for this admission?: Yes Plan: 02/09/2020-patient was markedly tachypneic earlier today. She has been on BiPAP. X-ray reveals bilateral multifocal airspace disease. Patient is on rifaximin and cefepime. I have added vancomycin to broaden the coverage. Hopefully this will allow us to wean her back to room air. (8) Hypernatremia Is this a current diagnosis for this admission?: Yes Plan: 02/09/2020-at presentation patient was hyponatremic which would be expected with her liver disease. Today her potassium is 148. I will administer gentle half- normal saline and monitor sodium levels. (9) Hypokalemia Is this a current diagnosis for this admission?: Yes Plan: 02/09/2020-potassium supplements given prior to today have gotten her serum potassium to 3.5. I will order scheduled dosing and monitor closely. - Plan Summary Summary: 02/09/2020-I had a 35-minute discussion with the patient's mother. I reviewed the lab work as well as imaging studies. She expressed her significant concern for such an abrupt downturn/worsening of her daughter's condition. We reviewed the daughter's history as well as her clinical course since admission. I explained to the patient's mother that her daughter is still very sick. I explained the changes in the treatment plan that I intended to put into place. I plan on speaking to her again tomorrow and update her on her daughter's progress. - Time Time Spent with patient: 35 or more minutes Medications reviewed and adjusted accordingly: Yes Anticipated Discharge Disposition: Unknown Anticipated Discharge Timeframe: Unknown
[2020-02-09] MEDS ORDERED: VANCOMYCIN HCL 0 MG in DEXTROSE 5%-WATER 250 ML IV NR (17:45)
[2020-02-09] MEDS ORDERED: 1/2 NORMAL SALINE 1,000 ML IV PRN (18:00)
[2020-02-09] MEDS ORDERED: VANCOMYCIN HCL INJ 1000 MG VIAL IV PRN (18:02)
[2020-02-09] MEDS ORDERED: NORMAL SALINE 250 ML IV PRN ×2 (18:03)
[2020-02-09] MEDS ORDERED: VANCOMYCIN HCL 1,250 MG in DEXTROSE 5%-WATER 250 ML IV ONE (19:00)
[2020-02-09] MEDS ORDERED: VANCOMYCIN HCL INJ 500 MG VIAL ONE (20:43)
[2020-02-09] MEDS ORDERED: VANCOMYCIN HCL INJ 1000 MG VIAL ONE (20:43)
[2020-02-10] MEDS: FENTANYL CITRATE INJ/PF 100 MCG/2 ML AMPUL IV PRN ×2 (02:42→18:38)
[2020-02-10] MEDS: LACTULOSE SYRUP 20 GM/30 ML UDCUP NG SCH ×3 (05:07→17:51)
[2020-02-10] MEDS: POTASSIUM CHLORIDE 20 MEQ PACKET NG SCH ×3 (05:07→21:13)
[2020-02-10 08:56] LABS: INTERNATIONAL RATION (INR) 2.25; PROTHROMBIN TIME 24.9 SEC (11.4-15.4)
[2020-02-10 09:04] LABS: MEAN CORPUSCULAR HEMOGLOBIN 34.9 pg (27.0-33.4); MEAN CORPUSCULAR HGB CONC 33.2 g/dL (32.0-36.0); MEAN CORPUSCULAR VOLUME 105 fl (80-97); PLATELET COUNT 106 10^3/uL (150-450); RED BLOOD COUNT 2.18 10^6/uL (3.72-5.28); RED CELL DISTRIBUTION WIDTH 26.2 % (11.5-14.0); WHITE BLOOD COUNT 24.1 10^3/uL (4.0-10.5)
[2020-02-10] MEDS: RIFAXIMIN 550 MG TABLET PO SCH ×2 (09:04→21:13)
[2020-02-10] MEDS: PANTOPRAZOLE SODIUM 40 MG TABLET.DR PO SCH (09:04)
[2020-02-10] MEDS: MIDODRINE HCL 5 MG TABLET PO SCH ×3 (09:05→17:51)
[2020-02-10] MEDS: CEFEPIME 1 GM/D5W RTU 1 GM/50 ML RTUPB IV SCH ×2 (09:05→17:53)
[2020-02-10] MEDS: FUROSEMIDE 20 MG TABLET PO SCH (09:05)
[2020-02-10] MEDS: BUSPIRONE HCL 10 MG TABLET PO SCH ×2 (09:05→17:51)
[2020-02-10] MEDS: SPIRONOLACTONE 25 MG TABLET PO SCH (09:05)
[2020-02-10 09:16] LABS: ALBUMIN 3.5 g/dL (3.5-5.0); ALKALINE PHOSPHATASE 146 U/L (38-126); ANION GAP 14 (5-19); ASPARTATE AMINO TRANSFERASE 45 U/L (14-36); BILIRUBIN,DIRECT 7.9 mg/dL (0.0-0.4); BILIRUBIN,TOTAL 12.1 mg/dL (0.2-1.3); BLOOD UREA NITROGEN 46 mg/dL (7-20); CALCIUM 10.1 mg/dL (8.4-10.2); CARBON DIOXIDE 21 mmol/L (22-30); CHLORIDE 127 mmol/L (98-107); GLUCOSE 137 mg/dL (75-110); POTASSIUM 3.1 mmol/L (3.6-5.0); TOTAL PROTEIN 7.4 g/dL (6.3-8.2)
[2020-02-10 10:07] LABS: HEMOGLOBIN 7.6 g/dL (12.0-15.5)
[2020-02-10 10:08] LABS: ABSOLUTE LYMPHOCYTES# (MANUAL) 1.9 10^3/uL (0.5-4.7); ABSOLUTE MONOCYTES # (MANUAL) 0.2 10^3/uL (0.1-1.4); BAND NEUTROPHILS % (MANUAL) 2 % (3-5); BASOPHILS % (MANUAL) 0 % (0-2); EOSINOPHILS % (MANUAL) 1 % (0-6); LYMPHOCYTES % (MANUAL) 8 % (13-45); MONOCYTES % (MANUAL) 1 % (3-13); SEGMENTED NEUTROPHILS % (MAN) 88 % (42-78); TOTAL CELLS COUNTED 100
[2020-02-10 10:10] LABS: ANISOCYTOSIS 3+; PLATELET COMMENT DECREASED
[2020-02-10] MEDS ORDERED: 1/2 NORMAL SALINE 1,000 ML IV PRN (11:50)
--- NOTE | 2020-02-10 12:48 | PDOC PROGRESS REPORT ---
Subjective Progress Note for:: 02/10/20 Subjective:: The patient is not significantly changed from yesterday. Still moaning and unable to communicate. She does open her eyes on occasion with verbal stimulation. Her mother was at the bedside and she clearly recognizes her mother. She in fact started tearing when her mother was talking to her. Reason For Visit: SEVERE HEPATIC ENCEPHALOPATHY Physical Exam Vital Signs: Temp Pulse Resp BP Pulse Ox 98.4 F 124 H 30 H 113/59 L 98 02/10/20 10:00 02/10/20 08:15 02/10/20 08:15 02/10/20 08:15 02/10/20 08:15 Intake & Output 02/09/20 02/10/20 02/11/20 06:59 06:59 06:59 Intake Total 636 1423 Output Total 810 2700 500 Balance -174 -1377 -500 Weight 54.3 kg 47.4 kg General appearance: PRESENT: severe distress - Moderate to severe distress, well-developed, other - Still on BiPAP with tachypnea Head exam: PRESENT: atraumatic, normocephalic Eye exam: PRESENT: scleral icterus Ear exam: PRESENT: normal external ear exam. ABSENT: bleeding, drainage Mouth exam: PRESENT: other - BiPAP mask in place Neck exam: PRESENT: JVD. ABSENT: carotid bruit, lymphadenopathy Respiratory exam: PRESENT: decreased breath sounds - At bases, symmetrical, tachypnea. ABSENT: rales, rhonchi, wheezes Cardiovascular exam: PRESENT: +S1, +S2, tachycardia. ABSENT: bradycardia, diastolic murmur, irregular rhythm, systolic murmur GI/Abdominal exam: PRESENT: diminished bowel sounds, distended, soft - Still slightly soft but less so than yesterday Rectal exam: PRESENT: deferred Gentrourinary exam: PRESENT: indwelling catheter Extremities exam: ABSENT: pedal edema Neurological exam: PRESENT: alert, awake, other - Appears to recognize and respond to her mother. Tearful at the interaction. Psychiatric exam: PRESENT: other - Restless at times Focused psych exam: PRESENT: other - Difficult to assess Skin exam: PRESENT: jaundice, other - Nursing reports pressure areas on sacrum. Wound care has seen the patient. Results Laboratory Results: 02/10/20 08:43 02/10/20 08:43 02/08/20 02/10/20 02/10/20 07:12 08:43 08:43 WBC 24.1 H RBC 2.18 L Hgb 7.6 L Hct 23.0 L MCV 105 H MCH 34.9 H MCHC 33.2 RDW 26.2 H Plt Count 106 L Seg Neutrophils % Not Reportable Sodium 161.9 H Potassium 3.1 L Chloride 127 H Carbon Dioxide 21 L Anion Gap 14 BUN 46 H Creatinine 1.05 Est GFR ( Amer) > 60 Glucose 137 H Calcium 10.1 Phosphorus 3.0 Magnesium 2.5 H Total Bilirubin 12.1 H AST 45 H Alkaline Phosphatase 146 H Total Protein 7.4 Albumin 3.5 Blood Type O NEGATIVE Antibody Screen NEGATIVE 02/05/20 05:45 Blood Blood Culture - Final NO GROWTH IN 5 DAYS Impressions: Chest X-Ray 02/08/20 05:00 IMPRESSION: Low lung volumes with patchy multifocal airspace disease suggestive of multifocal infection. No significant effusion. KUB X-Ray 02/09/20 07:40 IMPRESSION: Esophagogastric tube remains in the gastric lumen. Assessment and Plan - Diagnosis (1) Acute hepatic encephalopathy Is this a current diagnosis for this admission?: Yes Plan: 02/09/2020-the patient was admitted with an ammonia level of 158. With aggressive lactulose it is greatly improved. The patient was on rifaximin chronically. She is confused today. It is possible it is related to a different process. She is covered for spontaneous bacterial peritonitis but there is limited gram-positive coverage. The vancomycin will help this. The only thing not covered might be atypical bacteria. We will monitor her progress with the addition of vancomycin. 02/10/2020-appears to be less confused today. Seems to be communicating with her mother. Mother states she is far from baseline. (2) Ascites due to alcoholic cirrhosis Is this a current diagnosis for this admission?: Yes Plan: She will need a paracentesis. Her INR is too high at 2.3 and PLT too low at 67. Getting transfused both. 02/10/2020-INR was 2.2 today. Vitamin K administered through NG tube but unsure of absorption. Will administer 5 mg subcu today. We will also administer additional fresh frozen plasma and tried to depress her INR to 1.5 so that interventional radiology can perform a large-volume paracentesis. (3) Hyperammonemia Is this a current diagnosis for this admission?: Yes Plan: 02/09/2020-ammonia level was down to 38 but today it is up slightly at 49. I will recheck tomorrow. May need to increase lactulose. (4) SBP (spontaneous bacterial peritonitis) Is this a current diagnosis for this admission?: Yes Plan: 02/09/2020-continue cefepime and rifaximin. Plan for paracentesis when platelet count and INR are acceptable. 02/10/2020-continue cefepime and rifaximin for possible peritonitis. The patient did have a large-volume paracentesis on January 29. The timing certainly fits for the development of peritonitis. (5) Neutrophilic leukocytosis Is this a current diagnosis for this admission?: Yes Plan: 02/09/2020-white blood cell count was improving slowly. On admission it was 25. Over the last several days it dropped to 18.3 but has been rising. Today it is 26.5 which is higher than the admission white blood cell count. This is concerning for some infection that is not currently being covered. Cefepime and rifaximin will cover spontaneous bacterial peritonitis as well as gram-negative pneumonias. We will add vancomycin as noted above. Effective treatment of infection should improve the white blood cell count. 02/10/2020-upon review of records from [place] [facility] her white blood cell count has been elevated since discharge from [facility]. White blood cell count seems to be fluctuating but no significant decrease noted despite aggressive treatment for infection. (6) Acute respiratory failure with hypoxia Is this a current diagnosis for this admission?: Yes Plan: 02/09/2020-the patient's mother reports that she was able to carry on a conversation and was on nasal cannula yesterday. The BiPAP is being used to help improve aeration. Her tachypnea was causing extremely shallow respirations. She is maintaining reasonable saturations currently. She is on diuretics and I am hoping that the addition of vancomycin will help. Her abdomen is distended with ascites but is not firm. It is soft enough that I believe diaphragmatic excursion is unimpeded or barely impeded. We will continue to monitor closely. 02/10/2020-we will continue BiPAP but institute trials of nasal cannula or simple mask. (7) Pneumonia of both lungs Qualifiers: Pneumonia type: due to unspecified organism Lung location: unspecified part of lung Qualified Code(s): J18.9 - Pneumonia, unspecified organism Is this a current diagnosis for this admission?: Yes Plan: 02/09/2020-patient was markedly tachypneic earlier today. She has been on BiPAP. X-ray reveals bilateral multifocal airspace disease. Patient is on rifaximin and cefepime. I have added vancomycin to broaden the coverage. Hopefully this will allow us to wean her back to room air. 02/10/2020-still tachypneic and still on BiPAP. Review of some records from her gastroenterology office suggest that she had bilateral infiltrates while in [facility]. I will try and obtain more information. For the time being we will continue vancomycin for gram-positive coverage. (8) Hypernatremia Is this a current diagnosis for this admission?: Yes Plan: 02/09/2020-at presentation patient was hyponatremic which would be expected with her liver disease. Today her potassium is 148. I will administer gentle half- normal saline and monitor sodium levels. 02/10/2020-serum sodium is increased despite starting half-normal saline. Calculations reveal the desired rate of half-normal saline to be 147 mL/h to decrease serum sodium by 0.5 mEq/h. I have increased the rate of her half-norm al saline. Will recheck electrolytes. Will need to monitor volume status. (9) Hypokalemia Is this a current diagnosis for this admission?: Yes Plan: 02/09/2020-potassium supplements given prior to today have gotten her serum pota ssium to 3.5. I will order scheduled dosing and monitor closely. 02/10/2020-serum potassium is still low at 3.1 today. Will administer additional potassium chloride. She may need intravenous potassium chloride. (10) Blood bacterial culture positive Is this a current diagnosis for this admission?: Yes Plan: 02/09/2020-single positive blood culture for serrations marcescens. Difficult to know clinical significance. Regardless, antibiotics for spontaneous bacterial peritonitis cover the Serratia. (11) Anemia Qualifiers: Anemia type: other cause Other causes of anemia: nutritional, unspecified Qualified Code(s): D53.9 - Nutritional anemia, unspecified Is this a current diagnosis for this admission?: Yes Plan: 02/10/2020-hemoglobin is 7.6 today. Hemoglobin was 6.0 on admission. She has received 2 units of packed red blood cells but her hemoglobin has been slowly decreasing. This is likely due to her severe liver disease. Will administer 1 unit of packed red blood cells today. - Plan Summary Summary: 02/09/2020-I had a 35-minute discussion with the patient's mother. I reviewed the lab work as well as imaging studies. She expressed her significant concern for such an abrupt downturn/worsening of her daughter's condition. We reviewed the daughter's history as well as her clinical course since admission. I exp lained to the patient's mother that her daughter is still very sick. I explained the changes in the treatment plan that I intended to put into place. I plan on speaking to her again tomorrow and update her on her daughter's progress. 02/10/2020-being that her gastroenterology service is in [place] and considering she spent 2 weeks in the hospital recently I the transfer center at [facility]. There are 50 patients waiting and therefore they are not even placing patients on the list. I did ask to speak to the poly operator button tufter. I reviewed the specifics of her hospitalization here as well as information regarding her follow-up visit. I reviewed current treatment that she is receiving at this time. He stated there are no other options that we are failing to administer. He feels that infection makes the most sense with such a rapid decline. He suggest continuing the same treatment plan and in addition calling [place] [facility] to speak to her GI provider tomorrow to review the case. I then spoke to the patient's mother regarding the lack of beds at [facility]. I reviewed the discussion that I had with the poly operator. She is in agreement for continuing current treatment plan including transfusing 1 unit of packed red blood cells for her hemoglobin of 7.6. - Time Time Spent with patient: 35 or more minutes Medications reviewed and adjusted accordingly: Yes Anticipated Discharge Disposition: Unknown Anticipated Discharge Timeframe: Unknown
[2020-02-10] MEDS ORDERED: PHYTONADIONE INJ 10 MG/1 ML AMPULE SUBCUT ONE (15:02)
[2020-02-10] MEDS ORDERED: FUROSEMIDE INJ/PF 20 MG/2 ML SDV IV PRN (15:04)
[2020-02-10] MEDS ORDERED: NORMAL SALINE 250 ML IV PRN ×2 (15:04)
[2020-02-10] MEDS: PANTOT AC/MIN OIL/PET HY-PHL OINT 50 GM TOP SCH (17:52)
[2020-02-10] MEDS: VANCOMYCIN HCL 750 MG in DEXTROSE 5%-WATER 250 ML IV SCH (21:17)
[2020-02-10 22:16] LABS: MEAN CORPUSCULAR HEMOGLOBIN 34.6 pg (27.0-33.4); MEAN CORPUSCULAR HGB CONC 33.4 g/dL (32.0-36.0); MEAN CORPUSCULAR VOLUME 104 fl (80-97); RED BLOOD COUNT 2.61 10^6/uL (3.72-5.28)
[2020-02-10] MEDS: METOPROLOL TARTRATE PF/INJ 5 MG/5 ML SDV IV PRN ×2 (22:21→22:25)
[2020-02-10 22:40] LABS: PLATELET COUNT 95 10^3/uL (150-450)
[2020-02-10] MEDS ORDERED: METOPROLOL TARTRATE PF/INJ 5 MG/5 ML SDV IV PRN ×3 (23:55→23:57)
[2020-02-10] MEDS ORDERED: DIAZEPAM INJ 10 MG/2 ML DISP.SYRIN IV PRN (23:58)
[2020-02-11] MEDS: LACTULOSE SYRUP 20 GM/30 ML UDCUP NG SCH ×4 (00:29→17:29)
[2020-02-11] MEDS: FENTANYL CITRATE INJ/PF 100 MCG/2 ML AMPUL IV PRN ×3 (01:13→17:41)
[2020-02-11 08:00] LABS: ABSOLUTE LYMPHOCYTES (AUTO) 2.2 10^3/uL (0.5-4.7); ABSOLUTE MONOCYTES (AUTO) 0.7 10^3/uL (0.1-1.4); ABSOLUTE NEUT (AUTO) 15.9 10^3/uL (1.7-8.2); BASOPHILS % (AUTO) 0.2 % (0-2); EOSINOPHILS % (AUTO) 0.1 % (0-6); HEMOGLOBIN 8.1 g/dL (12.0-15.5); LYMPHOCYTES % (AUTO) 11.7 % (13-45); MEAN CORPUSCULAR HEMOGLOBIN 34.4 pg (27.0-33.4); MEAN CORPUSCULAR HGB CONC 33.7 g/dL (32.0-36.0); MEAN CORPUSCULAR VOLUME 102 fl (80-97); MONOCYTES % (AUTO) 3.5 % (3-13); RED BLOOD COUNT 2.35 10^6/uL (3.72-5.28); RED CELL DISTRIBUTION WIDTH 26.1 % (11.5-14.0); SEGMENTED NEUTROPHILS % (AUTO) 84.5 % (42-78); TOTAL CELLS COUNTED % (AUTO) 100 %; WHITE BLOOD COUNT 18.8 10^3/uL (4.0-10.5)
[2020-02-11 08:10] LABS: INTERNATIONAL RATION (INR) 2.39; PROTHROMBIN TIME 26.1 SEC (11.4-15.4)
[2020-02-11 08:19] LABS: ARTERIAL BLOOD BASE EXCESS -1.4 mmol/L; ARTERIAL BLOOD H2CO3 0.96 mmol/L (1.05-1.35); ARTERIAL BLOOD HCO3 22.1 mmol/L (20-24); ARTERIAL BLOOD O2 SATURATION 92.4 % (94-98); ARTERIAL BLOOD PCO2 31.8 mmHg (35-45); ARTERIAL BLOOD PH 7.46 (7.35-7.45); ARTERIAL BLOOD PO2 59.4 mmHg (80-100)
[2020-02-11 08:21] LABS: ARTERIAL BLOOD FIO2 70%
[2020-02-11 08:23] LABS: ALBUMIN 3.4 g/dL (3.5-5.0); ALKALINE PHOSPHATASE 150 U/L (38-126); ANION GAP 14 (5-19); ASPARTATE AMINO TRANSFERASE 65 U/L (14-36); BILIRUBIN,DIRECT 7.4 mg/dL (0.0-0.4); BLOOD UREA NITROGEN 51 mg/dL (7-20); CALCIUM 10.4 mg/dL (8.4-10.2); CARBON DIOXIDE 20 mmol/L (22-30); CHLORIDE 130 mmol/L (98-107); GLUCOSE 129 mg/dL (75-110); PLATELET COUNT 76 10^3/uL (150-450); POTASSIUM 3.2 mmol/L (3.6-5.0); TOTAL PROTEIN 7.2 g/dL (6.3-8.2)
[2020-02-11 08:24] LABS: ANISOCYTOSIS 3+
[2020-02-11 08:27] LABS: BURR CELLS 1+; OVALOCYTES 1+; POIKILOCYTOSIS 1+
[2020-02-11 08:31] LABS: PLATELET COMMENT DECREASED; PLATELET LARGE PRESENT
--- NOTE | 2020-02-11 09:10 | RADIOLOGY REPORT (SQ) ---
EXAM DESCRIPTION: CHEST SINGLE VIEW IMAGES COMPLETED DATE/TIME: 02/11/2020 8:45 am REASON FOR STUDY: resp failure COMPARISON: 02/08/2020 EXAM PARAMETERS: NUMBER OF VIEWS: One view. TECHNIQUE: Single frontal radiographic view of the chest acquired. RADIATION DOSE: NA LIMITATIONS: None. FINDINGS: LUNGS AND PLEURA: Persistent diffuse bilateral multifocal airspace opacities, similar to p rior. No large effusion. No pneumothorax. MEDIASTINUM AND HILAR STRUCTURES: Stable. HEART AND VASCULAR STRUCTURES: Stable. BONES: No acute findings. HARDWARE: Enteric tube tip overlies distal stomach/ proximal duodenum. OTHER: No other significant finding. IMPRESSION: Persistent diffuse multifocal airspace disease bilaterally. TECHNICAL DOCUMENTATION: JOB ID: [id number] 2010 [employer]- All Rights Reserved Reading location - IP/workstation name: [email or web address]
[2020-02-11] MEDS: FUROSEMIDE 20 MG TABLET PO SCH (09:17)
[2020-02-11] MEDS: MIDODRINE HCL 5 MG TABLET PO SCH ×3 (09:17→17:29)
[2020-02-11] MEDS: BUSPIRONE HCL 10 MG TABLET PO SCH ×2 (09:17→17:29)
[2020-02-11] MEDS: RIFAXIMIN 550 MG TABLET PO SCH ×2 (09:17→22:16)
[2020-02-11] MEDS: PANTOPRAZOLE SODIUM 40 MG TABLET.DR PO SCH (09:18)
[2020-02-11] MEDS: PANTOT AC/MIN OIL/PET HY-PHL OINT 50 GM TOP SCH ×2 (09:18→17:29)
[2020-02-11] MEDS: POTASSIUM CHLORIDE 20 MEQ PACKET NG SCH ×3 (09:18→22:16)
[2020-02-11] MEDS: CEFEPIME 1 GM/D5W RTU 1 GM/50 ML RTUPB IV SCH (09:18)
[2020-02-11] MEDS: SPIRONOLACTONE 25 MG TABLET PO SCH (09:18)
[2020-02-11] MEDS: DEXTROSE 5%-WATER 1000 ML 1,000 ML IV PRN (10:58)
[2020-02-11] MEDS ORDERED: ACETAMINOPHEN 325 MG TABLET PO ONE (12:00)
[2020-02-11] MEDS ORDERED: ALBUMIN HUMAN 12.5 GM/50 ML RTUINJ IV ONE ×2 (12:30→14:00)
[2020-02-11] MEDS ORDERED: METOPROLOL TARTRATE PF/INJ 5 MG/5 ML SDV IV PRN (13:09)
[2020-02-11] MEDS ORDERED: NORMAL SALINE 1000 ML 500 ML IV ONE (13:10)
[2020-02-11] MEDS ORDERED: CEFOTAXIME SODIUM 2 GM in DEXTROSE 5%-WATER 50 ML IV SCH (14:00)
--- NOTE | 2020-02-11 20:39 | Progress Note ---
Provider Note Provider Note: [facility] Telephone Consultation Note Asked to review patient's chart. Pt not seen or examined. Case was briefly discussed with Dr. Arias. Ms. Ayala is a 34-year-old woman with PMH including liver disease due to alcoholic hepatitis, ascites requiring paracentesis, and recent hospitalization at [facility]. She was brought to [facility] on 02/05/20 with hepatic encephalopathy. She had normothermia, was tachypneic, had decreased level of consciousness with responsiveness to pain but otherwise lack of orientation and appropriate mental status, no cardiac murmurs noted, a distended abdomen, 1+ pedal edema, muscle wasting, cachectic appearance, jaundice, and dry oral mucosa noted. Lab abnormalities included neutrophilic leukocytosis, mild thrombocytopenia, acute kidney injury with SCr of 2 on admission, sodium 127, elevated total bilirubin 12, hyperammonemia, mild elevations in transaminases 40-60. She initially was admitted to the ICU and required Levophed for hypotension. Urinalysis on admission was unremarkable. Blood cultures grew Serratia marcescens in one of 4 blood culture bottles, the source of which was suspected to be SBP, per notes. Imaging studies have included single view CXR on 02/08/20 read as showing patchy multifocal airspace disease without significant effusion. Repeat frontal view CXR today 02/11/20 was read as similar. Impression/Recommendations Serratia marcescens bacteremia - source is unclear but could potentially be related to SBP, as previously documented in provider notes. I do not see the results of a recent paracentesis, but I also do not have access to paper chart. Another possibility is bacteremia secondary to pneumonia in light of her abnormal CXR. - The Serratia isolate is susceptible to cefepime, among other agents. Cefepime retains effectiveness in the presence of inducible AmpC, which is less common for Serratia than some other SPACE or SPICE organisms, and is reasonable to continue but would increase dose to 2 grams q 12h in light of change in renal function. - She has been on cefepime since 02/05 to present (today is day 6). Duration of therapy for an uncomplicated Gram negative bacteremia is typically in the range of 7-10 days. Pneumonia usually does not require more than 7 days of treatment in absence of complicating factors such as a pulmonary abscess or empyema, neither of which are seen on CXR. SBP, likewise, is typically able to be treated with a shorter duration of therapy, such as 5-7 days. - If abdominal pain is still present or if patient febrile, consider repeating paracentesis. Abnormal CXR - Etiology also not well defined. The possibility of a bacterial pneumonia has been raised in light of persistent elevated WBC count, increasing amount of supplemental oxygen the patient is requiring, patchy bilateral infiltrates. In response, vancomycin was also empirically started, pending further studies. - it is helpful if patient is able to produce sputum, although yield may decrease after antibiotic administration and patient expectoration of a good lower respiratory tract specimen is not assured. What else can be done in absence of this? - If nasal MRSA PCR is positive, the positive predictive value is not great, but if it is negative, this has a high negative predictive value, arguing against the presence of MRSA pneumonia. Would be worth sending if it can be done in- house and return in a clinically useful time frame. Would discontinue IV vancomycin if this is negative. Urine Legionella antigen could be sent as well, as this can be a consideration when there is a lack of response to beta-lactam antibiotics, hyponatermia, abnormal LFTs. Ld Costa MD [facility] pager [phone]
--- NOTE | 2020-02-11 20:56 | PDOC TRANSFER SUMMARY ---
General Admission Date/PCP: 02/05/20 07:22 Admission Date: 02/05/20 Transfer Date: 02/11/20 Accepting Facility: [facility] Accepting Physician: Dr. Judy Giron Resuscitation Status: Full Code - Transfer Diagnosis (1) Acute hepatic encephalopathy Is this a current diagnosis for this admission?: Yes (2) Ascites due to alcoholic cirrhosis Is this a current diagnosis for this admission?: Yes (3) Hyperammonemia Is this a current diagnosis for this admission?: Yes (4) SBP (spontaneous bacterial peritonitis) Is this a current diagnosis for this admission?: Yes (5) Neutrophilic leukocytosis Is this a current diagnosis for this admission?: Yes (6) Acute respiratory failure with hypoxia Is this a current diagnosis for this admission?: Yes (7) Pneumonia of both lungs Is this a current diagnosis for this admission?: Yes (8) Hypernatremia Is this a current diagnosis for this admission?: Yes (9) Hypokalemia Is this a current diagnosis for this admission?: Yes (10) Blood bacterial culture positive Is this a current diagnosis for this admission?: Yes (11) Anemia Is this a current diagnosis for this admission?: Yes - Transfer Medications Home Medications: Buspirone HCl [Buspar 10 mg Tablet] 10 mg PO BID 02/05/20 Furosemide [Lasix 20 mg Tablet] 20 mg PO DAILY 02/05/20 Gabapentin [Neurontin 100 mg Capsule] 100 mg PO Q8 02/05/20 Lactulose [Cephulac Syrup 20 gm/30 ml Udcup] 45 ml PO BID 02/05/20 Midodrine HCl 10 mg PO TID 02/05/20 Pantoprazole Sodium [Protonix] 40 mg PO ACBRKFST 02/05/20 Prednisolone Sod Phosphate [Prelone Soln 15 mg/5 ml Oral Syring] 15 mg PO .ASDIR 02/05/20 Rifaximin [Xifaxan 550 mg Tablet] 550 mg PO BID 02/05/20 Spironolactone [Aldactone] 50 mg PO DAILY 02/05/20 Transfer Medications: Current Medications Buspirone HCl (Buspar 10 Mg Tablet) 10 mg PO BID [facility] Stop: 03/06/20 17:59 Last Admin: 02/11/20 17:29 Dose: 10 mg Documented by: Diazepam (Valium Inj 10 Mg/2 Ml Disp.Syrin) 5 mg IV Q4HP PRN PRN Reason: ANXIETY Stop: 02/17/20 23:57 Last Admin: 02/11/20 00:06 Dose: 5 mg Documented by: Fentanyl Citrate (Sublimaze Inj/Pf 100 Mcg/2 Ml Ampule) 50 mcg IV Q3HP PRN PRN Reason: FOR BREAKTHROUGH PAIN Stop: 02/15/20 09:23 Last Admin: 02/11/20 17:41 Dose: 50 mcg Documented by: Hydrophilic Ointment (Aquaphor W-Molly Heal Oint 50 Gm) 1 applic TOP BID [facility] Stop: 03/11/20 17:59 Last Admin: 02/11/20 17:29 Dose: 1 applic Documented by: Vancomycin HCl 750 mg/ (Dextrose) 250 mls @ 166.667 mls/hr IV QHS [facility] Stop: 02/17/20 21:59 Last Infusion: 02/10/20 23:07 Dose: Infused Documented by: Dextrose (D5w 1000 Ml Iv Soln) 1,000 mls @ 85 mls/hr IV CONTINUOUS PRN PRN Reason: THIS MED IS NOT "PRN" Stop: 03/12/20 09:05 Last Admin: 02/11/20 10:58 Dose: 85 mls/hr Documented by: Cefepime HCl 2 gm/ Dextrose 50 mls @ 100 mls/hr IV Q12 [facility] Stop: 02/18/20 21:59 Lactulose (Cephulac Syrup 20 Gm/30 Ml Udcup) 30 gm NG Q6 [facility] Stop: 03/08/20 11:59 Last Admin: 02/11/20 17:29 Dose: 30 gm Documented by: Metoprolol Tartrate (Lopressor Inj/Pf 5 Mg/5 Ml Sdv) 5 mg IV Q4HP PRN PRN Reason: HR>125 Stop: 03/11/20 23:54 Midodrine (Proamatine 5 Mg Tablet) 10 mg PO TID [facility] Stop: 03/06/20 17:59 Last Admin: 02/11/20 17:29 Dose: 10 mg Documented by: Pantoprazole Sodium (Protonix [address] Tablet) 40 mg PO ACBRKFST [facility] Stop: 03/07/20 07:59 Last Admin: 02/11/20 09:18 Dose: 40 mg Documented by: Potassium Chloride (Potassium Chloride 20 Meq Packet) 20 meq NG Q8 [facility] Stop: 03/10/20 13:59 Last Admin: 02/11/20 14:36 Dose: 20 meq Documented by: Rifaximin (Xifaxan 550 Mg Tablet) 550 mg PO Q12 [facility] Stop: 02/12/20 21:59 Last Admin: 02/11/20 09:17 Dose: 550 mg Documented by: Sodium Chloride (Saline Flush 2.5 Ml Monoject Prefil Syrin) 2.5 ml IV Q8 [facility] Stop: 03/07/20 13:59 Last Admin: 02/11/20 15:45 Dose: Not Given Documented by: - Allergies Allergies/Adverse Reactions: No Known Allergies Allergy (Verified 07/04/15 18:58) - Diet/Activity Discharge Diet: Other (Comments) - Currently n.p.o. Was going to initiate tube feeds Discharge Activity: Other - Bedrest at this time Hospital Course Hospital Course: (1) Acute hepatic encephalopathy Is this a current diagnosis for this admission?: Yes Plan: 02/09/2020-the patient was admitted with an ammonia level of 158. With aggressive lactulose it is greatly improved. The patient was on rifaximin chronically. She is confused today. It is possible it is related to a differe nt process. She is covered for spontaneous bacterial peritonitis but there is limited gram-positive coverage. The vancomycin will help this. The only thing not covered might be atypical bacteria. We will monitor her progress with the addition of vancomycin. 02/10/2020-appears to be less confused today. Seems to be communicating with her mother. Mother states she is far from baseline. (2) Ascites due to alcoholic cirrhosis Is this a current diagnosis for this admission?: Yes Plan: She will need a paracentesis. Her INR is too high at 2.3 and PLT too low at 67. Getting transfused both. 02/10/2020-INR was 2.2 today. Vitamin K administered through NG tube but unsure of absorption. Will administer 5 mg subcu today. We will also administer additional fresh frozen plasma and tried to depress her INR to 1.5 so that int erventional radiology can perform a large-volume paracentesis. (3) Hyperammonemia Is this a current diagnosis for this admission?: Yes Plan: 02/09/2020-ammonia level was down to 38 but today it is up slightly at 49. I will recheck tomorrow. May need to increase lactulose. (4) SBP (spontaneous bacterial peritonitis) Is this a current diagnosis for this admission?: Yes Plan: 02/09/2020-continue cefepime and rifaximin. Plan for paracentesis when platelet count and INR are acceptable. 02/10/2020-continue cefepime and rifaximin for possible peritonitis. The patient did have a large-volume paracentesis on January 29. The timing certainly fits for the development of peritonitis. (5) Neutrophilic leukocytosis Is this a current diagnosis for this admission?: Yes Plan: 02/09/2020-white blood cell count was improving slowly. On admission it was 25. Over the last several days it dropped to 18.3 but has been rising. Today it is 26.5 which is higher than the admission white blood cell count. This is concerning for some infection that is not currently being covered. Cefepime and rifaximin will cover spontaneous bacterial peritonitis as well as gram-negative pneumonias. We will add vancomycin as noted above. Effective treatment of infection should improve the white blood cell count. 02/10/2020-upon review of records from [place] [facility] her white blood cell count has been elevated since discharge from [facility]. White blood cell count seems to be fluctuating but no significant decrease noted despite aggressive treatment for infection. (6) Acute respiratory failure with hypoxia Is this a current diagnosis for this admission?: Yes Plan: 02/09/2020-the patient's mother reports that she was able to carry on a conversation and was on nasal cannula yesterday. The BiPAP is being used to help improve aeration. Her tachypnea was causing extremely shallow respiratio ns. She is maintaining reasonable saturations currently. She is on diuretics and I am hoping that the addition of vancomycin will help. Her abdomen is distended with ascites but is not firm. It is soft enough that I believe diaphragmatic excursion is unimpeded or barely impeded. We will continue to monitor closely. 02/10/2020-we will continue BiPAP but institute trials of nasal cannula or sim ple mask. (7) Pneumonia of both lungs Qualifiers: Pneumonia type: due to unspecified organism Lung location: unspecified part of lung Qualified Code(s): J18.9 - Pneumonia, unspecified organism Is this a current diagnosis for this admission?: Yes Plan: 02/09/2020-patient was markedly tachypneic earlier today. She has been on BiPAP. X-ray reveals bilateral multifocal airspace disease. Patient is on rifaximin and cefepime. I have added vancomycin to broaden the coverage. Hopefully this will allow us to wean her back to room air. 02/10/2020-still tachypneic and still on BiPAP. Review of some records from her gastroenterology office suggest that she had bilateral infiltrates while in [facility]. I will try and obtain more information. For the time being we will continue vancomycin for gram-positive coverage. (8) Hypernatremia Is this a current diagnosis for this admission?: Yes Plan: 02/09/2020-at presentation patient was hyponatremic which would be expected with her liver disease. Today her potassium is 148. I will administer gentle half- normal saline and monitor sodium levels. 02/10/2020-serum sodium is increased despite starting half-normal saline. Calculations reveal the desired rate of half-normal saline to be 147 mL/h to decrease serum sodium by 0.5 mEq/h. I have increased the rate of her half- normal saline. Will recheck electrolytes. Will need to monitor volume status. (9) Hypokalemia Is this a current diagnosis for this admission?: Yes Plan: 02/09/2020-potassium supplements given prior to today have gotten her serum potassium to 3.5. I will order scheduled dosing and monitor closely. 02/10/2020-serum potassium is still low at 3.1 today. Will administer additional potassium chloride. She may need intravenous potassium chloride. (10) Blood bacterial culture positive Is this a current diagnosis for this admission?: Yes Plan: 02/09/2020-single positive blood culture for serrations marcescens. Difficult to know clinical significance. Regardless, antibiotics for spontaneous bacterial peritonitis cover the Serratia. (11) Anemia Qualifiers: Anemia type: other cause Other causes of anemia: nutritional, unspecified Qualified Code(s): D53.9 - Nutritional anemia, unspecified Is this a current diagnosis for this admission?: Yes Plan: 02/10/2020-hemoglobin is 7.6 today. Hemoglobin was 6.0 on admission. She has received 2 units of packed red blood cells but her hemoglobin has been slowly decreasing. This is likely due to her severe liver disease. Will administer 1 unit of packed red blood cells today. - Plan Summary Summary: 02/09/2020-I had a 35-minute discussion with the patient's mother. I reviewed the lab work as well as imaging studies. She expressed her significant concern for such an abrupt downturn/worsening of her daughter's condition. We reviewed the daughter's history as well as her clinical course since admission. I explained to the patient's mother that her daughter is still very sick. I explained the changes in the treatment plan that I intended to put into place. I plan on speaking to her again tomorrow and update her on her daughter's progress. 02/10/2020-being that her gastroenterology service is in [place] and considering she spent 2 weeks in the hospital recently I the transfer center at [facility]. There are 50 patients waiting and therefore they are not even placing patients on the list. I did ask to speak to the quality improvement manager chronograph operator. I reviewed the specifics of her hospitalizat ion here as well as information regarding her follow-up visit. I reviewed current treatment that she is receiving at this time. He stated there are no other options that we are failing to administer. He feels that infection makes the most sense with such a rapid decline. He suggest continuing the same treatment plan and in addition calling [place] [facility] to speak to her GI provider tomorrow to review the case. I then spoke to the patient's mother regarding the lack of beds at [facility]. I reviewed the discussion that I had with the quality improvement manager. She is in agreement for continuing current treatment plan including transfusing 1 unit of packed red blood cells for her hemoglobin of 7.6. Physical Exam Vital Signs: Temp Pulse Resp BP Pulse Ox 100.9 F H 119 H 29 H 116/60 97 02/11/20 19:25 02/11/20 19:25 02/11/20 19:25 02/11/20 19:25 02/11/20 19:25 Intake & Output 02/10/20 02/11/20 02/12/20 06:59 06:59 06:59 Intake Total 1423 1217 600 Output Total 2700 1725 600 Balance -1277 -508 0 Weight 47.4 kg 49.9 kg 49.9 kg General appearance: PRESENT: other - Unfortunate well-developed jaundiced 34-year-old female in moderate distress Head exam: PRESENT: atraumatic, normocephalic Eye exam: PRESENT: scleral icterus, other - Unable to follow command to check extraocular muscles Ear exam: PRESENT: normal external ear exam. ABSENT: bleeding, drainage Mouth exam: PRESENT: dry mucosa, tongue midline, other - Nasogastric tube in place Teeth exam: PRESENT: other - CPAP mask in place Neck exam: PRESENT: JVD. ABSENT: carotid bruit, lymphadenopathy Respiratory exam: PRESENT: tachypnea, other - Difficult to auscultate due to tachypnea and CPAP machine. ABSENT: rales, rhonchi, wheezes Cardiovascular exam: PRESENT: +S1, +S2, tachycardia. ABSENT: bradycardia, diastolic murmur, systolic murmur GI/Abdominal exam: PRESENT: ascites, distended, hypoactive bowel sounds, soft, tenderness. ABSENT: guarding Rectal exam: PRESENT: deferred, other - Rectal tube in place for lactulose administration Gentrourinary exam: PRESENT: indwelling catheter Extremities exam: PRESENT: other - Marked decrease in muscle mass. ABSENT: joint swelling Musculoskeletal exam: ABSENT: ambulatory Neurological exam: PRESENT: alert, altered - Will make eye contact. Unable to answer questions. The patient moans occasionally. She is responding to painful stimulus today., awake, other - Unable to fully assess orientation Psychiatric exam: PRESENT: agitated - Occasional agitation Skin exam: PRESENT: jaundice Results Laboratory Results: 02/11/20 07:45 02/11/20 07:45 02/08/20 02/10/20 02/11/20 07:12 21:47 07:45 WBC 21.0 H 18.8 H RBC 2.61 L 2.35 L Hgb 9.0 L 8.1 L Hct 27.0 L 24.0 L MCV 104 H 102 H MCH 34.6 H 34.4 H MCHC 33.4 33.7 RDW 26.0 H 26.1 H Plt Count 95 L 76 L Seg Neutrophils % 84.5 H Carbonic Acid HCO3/H2CO3 Ratio ABG pH ABG pCO2 ABG pO2 ABG HCO3 ABG O2 Saturation ABG Base Excess FiO2 Sodium Potassium Chloride Carbon Dioxide Anion Gap BUN Creatinine Est GFR ( Amer) Glucose Lactic Acid Calcium Total Bilirubin AST Alkaline Phosphatase Total Protein Albumin Blood Type O NEGATIVE Antibody Screen NEGATIVE 02/11/20 02/11/20 02/11/20 07:45 07:45 07:58 WBC RBC Hgb Hct MCV MCH MCHC RDW Plt Count Seg Neutrophils % Carbonic Acid 0.96 L HCO3/H2CO3 Ratio 23:1 ABG pH 7.46 H ABG pCO2 31.8 L ABG pO2 59.4 L ABG HCO3 22.1 ABG O2 Saturation 92.4 L ABG Base Excess -1.4 FiO2 70% Sodium 164.2 H Potassium 3.2 L Chloride 130 H Carbon Dioxide 20 L Anion Gap 14 BUN 51 H Creatinine 1.11 Est GFR ( Amer) > 60 Glucose 129 H Lactic Acid 3.6 H Calcium 10.4 H Total Bilirubin 12.0 H AST 65 H Alkaline Phosphatase 150 H Total Protein 7.2 Albumin 3.4 L Blood Type Antibody Screen Impressions: KUB X-Ray 02/09/20 07:40 IMPRESSION: Esophagogastric tube remains in the gastric lumen. Chest X-Ray 02/11/20 08:00 IMPRESSION: Persistent diffuse multifocal airspace disease bilaterally. Plan Discharge Plan: I spoke to [facility] repairer switchgear Dr. Castro as well as the blanket cutting machine operator Dr. Gage. Due to the patient's need for higher level of care they have graciously accepted the patient but we are waiting for bed availability. She continues to show no significant improvement with regard to treatment for her alcoholic cirrhosis as well as hyponatremia from overdiuresis, anemia and thrombocytopenia due to her severe liver disease. She has also developed bilateral infiltrates. These are being treated as infectious but may more likely be related to ARDS secondary to her liver failure. White blood cell count is still markedly elevated. With aggressive antibiotic therapy it appears to be coming down slightly. Total bilirubin is still markedly abnormal but is improved from her outpatient evaluation by [place] [facility] on January 20 when it was still 18. This is down from the total bilirubin level of 25 when she was admitted to [facility] on December 23. Despite feeling poorly for likely 8 to 10 months her first encounter for evaluation and treatment of her hepatitis was the admission to [facility] on December [id number]. She was discharged on 01/07/2020. She had subsequent follow-up with her quality improvement manager on 01/21/2020. She had multiple large-volume paracenteses during her hospitalization and on 01/30/2020 had an additional 5 L removed with an outpatient large-volume paracentesis. On February 05, 2020 the patient was brought to [facility]. Her mother found her on the floor obtunded at home. EMS was called. At that time her white blood cell count was markedly elevated as was her bilirubin. Ammonia level is 158. She was anemic and thrombocytopenic. Hemoglobin was 6 and over the course of her hospitalization she has received 3 units of packed red blood cells. She also received 2 units of platelets in an effort to increase her platelet count for paracentesis. Due to the coagulopathy we were unable to get the INR below 2.25 and this precluded paracentesis. She is being covered with antibiotic therapy for possible peritonitis as well as possible pneumonia. She did have 1+ blood culture for Serratia but the other blood culture set was negative. Unfortunately her sodium increased with overdiuresis. Nephrology has seen the patient and because of a lack of response to half-normal saline infusion we have changed to D5W. We are monitoring electrolytes. Correction of intravascular volume status should help with her tachycardia. The exact etiology of the respiratory failure with increased oxygen demand and increased work of breathing is still unclear. The patient will be transferred to [facility]. She will be placed in the medical ICU. She will be seen by hepatology as well. We are transferring the patient with the understanding that when she is appropriate for a lesser level of care she can transfer back to [facility]. At that time we will evaluate the patient and based on the treatment plan and her progress options including home, snf facility and rehab might be considered. As of 9:13 PM there is no bed available. I will be calling the transfer center again. This discharge summary is completed in anticipation of the transfer tonight or early in the morning. Time Spent: Greater than 30 Minutes
--- NOTE | 2020-02-11 21:35 | PDOC CONSULTATION ---
Consultation Consult Date: 02/11/20 Provider Consulted: BOSTON CARVALHO Consult reason:: Hypernatremia History of Present Illness Admission Date/PCP: 02/05/20 07:22 History of Present Illness: BARRY BELL is a 34 year old female with history of alcoholic hepatitis and chronic ascites admitted on 02/05/2020 due to decreased level of consciousness. Patient had large volume paracentesis draining 5 L of peritoneal fluid on 01/30/2020. In the ED she was hypotensive, jaundiced with obvious ascites. She was admitted initially in ICU for acute hepatic encephalopathy and subsequently transferred here in the floor. She is currently being treated for SBP with IV cefepime and vancomycin. Currently she also has acute respiratory failure requiring CPAP therapy. Patient is being given furosemide and spironolactone for her alcoholic cirrhosis since admission. I am consulted due to hypernatre tommie. The patient was initially admitted with hyponatremia on February 04 with sodium level of 127.6. It normalized for the next 3 days but since 2 days ago on February 08 her sodium level started going up from 148.2 until current of 164.2. Her weight has decreased from 53.1 kg to current of 49.9 kg. Her urine output has been anywhere between 600 to 800 mL for the last few days. Patient has been on CPAP therapy and does not really have much intake with altered mentation. Currently she is awake but has no meaningful communication. No further history can be obtained from patient currently. Past Medical History GI Medical History: Reports: Other - Alcoholic hepatitis and ascites Psychiatric Medical History: Reports: Depression Past Surgical History Past Surgical History: Reports: None Social History Information Source: [facility] Records Lives with: Family Smoking Status: Current Every Day Smoker Electronic Cigarette use?: No Frequency of Alcohol Use: Heavy - Advance Directive Resuscitation Status: Full Code Family History Family History: Unable to be obtained from patient due to mental status. Parental Family History Reviewed: No Children Family History Reviewed: No Sibling(s) Family History Reviewed.: No Medication/Allergy Home Medications: Buspirone HCl [Buspar 10 mg Tablet] 10 mg PO BID 02/05/20 Furosemide [Lasix 20 mg Tablet] 20 mg PO DAILY 02/05/20 Gabapentin [Neurontin 100 mg Capsule] 100 mg PO Q8 02/05/20 Lactulose [Cephulac Syrup 20 gm/30 ml Udcup] 45 ml PO BID 02/05/20 Midodrine HCl 10 mg PO TID 02/05/20 Pantoprazole Sodium [Protonix] 40 mg PO [id number] 02/05/20 Prednisolone Sod Phosphate [Prelone Soln 15 mg/5 ml Oral Syring] 15 mg PO .ASDIR 02/05/20 Rifaximin [Xifaxan 550 mg Tablet] 550 mg PO BID 02/05/20 Spironolactone [Aldactone] 50 mg PO DAILY 02/05/20 Allergies/Adverse Reactions: No Known Allergies Allergy (Verified 07/04/15 18:58) Review of Systems ROS unobtainable: Due to mental status Physical Exam Vital Signs: Temp Pulse Resp BP Pulse Ox 100.4 F 127 H 36 H 119/68 98 02/11/20 11:15 02/11/20 11:15 02/11/20 11:32 02/11/20 11:15 02/11/20 11:32 Intake & Output 02/10/20 02/11/20 02/12/20 06:59 06:59 06:59 Intake Total 1423 1217 50 Output Total 2700 1725 Balance -1277 -508 50 Weight 47.4 kg 49.9 kg Exam: General appearance: Currently on CPAP, awake but nonverbal, emaciated. Head exam: PRESENT: atraumatic, normocephalic Eye exam: PRESENT: Conjunctiva icteric, EOMI, PERRLA. ABSENT: conjunctival injection, scleral icterus Mouth exam: PRESENT: moist, neck supple, tongue midline Neck exam: PRESENT: full ROM. ABSENT: carotid bruit, JVD, lymphadenopathy, thyromegaly Respiratory exam: PRESENT: Diminished to auscultation bilaterally. ABSENT: rales, rhonchi, stridor, wheezes Cardiovascular exam: PRESENT: RRR, +S1, +S2. ABSENT: systolic murmur Pulses: PRESENT: normal radial pulses, normal dorsalis pedis pulses GI/Abdominal exam: PRESENT: Distended, normal bowel sounds, soft. Positive ascites ABSENT: guarding, mass, tenderness Rectal exam: Deferred Extremities exam: PRESENT: full ROM. Mild hand swelling and feet edema ABSENT: calf tenderness Musculoskeletal: PRESENT: full ROM. ABSENT: deformity Neurological exam: PRESENT: alert, Awake, Oriented to person, Oriented to place, Oriented to time, reflexes normal, CN II-XII grossly intact. ABSENT: motor sensory deficit Psychiatric exam: PRESENT: appropriate affect, normal mood. ABSENT: homicidal ideation, suicidal ideation Skin exam: PRESENT: intact, dry, warm. Jaundice ABSENT: rash Results Laboratory Results: 02/11/20 07:45 02/11/20 07:45 02/08/20 02/10/20 02/11/20 07:12 21:47 07:45 WBC 21.0 H 18.8 H RBC 2.61 L 2.35 L Hgb 9.0 L 8.1 L Hct 27.0 L 24.0 L MCV 104 H 102 H MCH 34.6 H 34.4 H MCHC 33.4 33.7 RDW 26.0 H 26.1 H Plt Count 95 L 76 L Seg Neutrophils % 84.5 H Carbonic Acid HCO3/H2CO3 Ratio ABG pH ABG pCO2 ABG pO2 ABG HCO3 ABG O2 Saturation ABG Base Excess FiO2 Sodium Potassium Chloride Carbon Dioxide Anion Gap BUN Creatinine Est GFR ( Amer) Glucose Lactic Acid Calcium Total Bilirubin AST Alkaline Phosphatase Total Protein Albumin Blood Type O NEGATIVE Antibody Screen NEGATIVE 02/11/20 02/11/20 02/11/20 07:45 07:45 07:58 WBC RBC Hgb Hct MCV MCH MCHC RDW Plt Count Seg Neutrophils % Carbonic Acid 0.96 L HCO3/H2CO3 Ratio 23:1 ABG pH 7.46 H ABG pCO2 31.8 L ABG pO2 59.4 L ABG HCO3 22.1 ABG O2 Saturation 92.4 L ABG Base Excess -1.4 FiO2 70% Sodium 164.2 H Potassium 3.2 L Chloride 130 H Carbon Dioxide 20 L Anion Gap 14 BUN 51 H Creatinine 1.11 Est GFR ( Amer) > 60 Glucose 129 H Lactic Acid 3.6 H Calcium 10.4 H Total Bilirubin 12.0 H AST 65 H Alkaline Phosphatase 150 H Total Protein 7.2 Albumin 3.4 L Blood Type Antibody Screen Impressions: KUB X-Ray 02/09/20 07:40 IMPRESSION: Esophagogastric tube remains in the gastric lumen. Chest X-Ray 02/11/20 08:00 IMPRESSION: Persistent diffuse multifocal airspace disease bilaterally. Assessment & Plan - Diagnosis (1) Hypernatremia Is this a current diagnosis for this admission?: Yes Plan: Hypernatremia for more than 48 hours. This most likely secondary to intravascular volume depletion due to poor oral intake with concomitant use of diuretics with furosemide and spironolactone. Estimated water deficit using her current actual body weight is around 4.3 L which is most likely an overestimation since her lean body weight is most likely much less. Nevertheless the patient would need free water replacement. I recommend initiation of D5 water with serum sodium level needs to be carefully monitored not to correct the sodium level more than 10 mEq in [address] Arias and he is a starting the patient on D5 water at 85 mL an hour which would give her 2 L in 24 hours. This needs to be adjusted depending on the patient's sodium level. I also recommend to hold the furosemide and spironolactone for at least the next couple of days until her sodium level is corrected. (2) Acute respiratory failure with hypoxia Is this a current diagnosis for this admission?: Yes Plan: Current CPAP therapy. With compensated respiratory alkalosis. (3) Acute hepatic encephalopathy Is this a current diagnosis for this admission?: Yes Plan: On lactulose. (4) SBP (spontaneous bacterial peritonitis) Is this a current diagnosis for this admission?: Yes Plan: On IV cefepime and vancomycin. (5) Coagulopathy Is this a current diagnosis for this admission?: Yes (6) Anemia Qualifiers: Anemia type: other cause Other causes of anemia: nutritional, unspecified Qualified Code(s): D53.9 - Nutritional anemia, unspecified Is this a current diagnosis for this admission?: Yes (7) Ascites due to alcoholic cirrhosis Is this a current diagnosis for this admission?: Yes (8) Hypokalemia Is this a current diagnosis for this admission?: Yes Plan: Replace as needed. (9) Pneumonia of both lungs Qualifiers: Pneumonia type: due to unspecified organism Lung location: unspecified part of lung Qualified Code(s): J18.9 - Pneumonia, unspecified organism Is this a current diagnosis for this admission?: Yes - Notes Notes: Thank you very much for this consultation. Discussed with Dr. Arias.
[2020-02-11] MEDS ORDERED: CEFEPIME 2 GM/D5W RTU 2 GM/50 ML RTUPB IV SCH (22:00)
[2020-02-11] MEDS: VANCOMYCIN HCL 750 MG in DEXTROSE 5%-WATER 250 ML IV SCH (22:15)
[2020-02-11] MEDS: CEFEPIME HCL 2 GM in DEXTROSE 5%-WATER 50 ML IV SCH (22:16)
[2020-02-12] MEDS: FENTANYL CITRATE INJ/PF 100 MCG/2 ML AMPUL IV PRN (02:01)
[2020-02-12] MEDS: LACTULOSE SYRUP 20 GM/30 ML UDCUP NG SCH ×2 (02:02→05:53)
[2020-02-12] MEDS: POTASSIUM CHLORIDE 20 MEQ PACKET NG SCH (05:52)
[2020-02-12] MEDS: DEXTROSE 5%-WATER 1000 ML 1,000 ML IV PRN (05:58)
[2020-02-12 09:27] LABS: ARTERIAL BLOOD BASE EXCESS -4.9 mmol/L; ARTERIAL BLOOD H2CO3 0.96 mmol/L (1.05-1.35); ARTERIAL BLOOD HCO3 19.3 mmol/L (20-24); ARTERIAL BLOOD O2 SATURATION 97.4 % (94-98); ARTERIAL BLOOD TOTAL CO2 20.3 mmol/L (21-25)
[2020-02-12 09:31] LABS: ARTERIAL BLOOD FIO2 100%
[2020-02-12 09:40] LABS: ALBUMIN 3.4 g/dL (3.5-5.0); ALKALINE PHOSPHATASE 168 U/L (38-126); ANION GAP 14 (5-19); ASPARTATE AMINO TRANSFERASE 65 U/L (14-36); BILIRUBIN,DIRECT 7.9 mg/dL (0.0-0.4); BILIRUBIN,TOTAL 12.7 mg/dL (0.2-1.3); BLOOD UREA NITROGEN 49 mg/dL (7-20); CALCIUM 10.4 mg/dL (8.4-10.2); CARBON DIOXIDE 18 mmol/L (22-30); CHLORIDE 133 mmol/L (98-107); GLUCOSE 167 mg/dL (75-110); TOTAL PROTEIN 7.5 g/dL (6.3-8.2)
[2020-02-12] MEDS ORDERED: ACETAMINOPHEN 1,000 MG/100 ML RTUPB IV PRN (09:50)
--- NOTE | 2020-02-12 09:59 | RADIOLOGY REPORT (SQ) ---
EXAM DESCRIPTION: CHEST SINGLE VIEW IMAGES COMPLETED DATE/TIME: 02/12/2020 9:50 am REASON FOR STUDY: respiratory failure COMPARISON: 02/11/2020. EXAM PARAMETERS: NUMBER OF VIEWS: One view. TECHNIQUE: Single frontal radiographic view of the chest acquired. RADIATION DOSE: NA LIMITATIONS: None. FINDINGS: LUNGS AND PLEURA: Diffuse bilateral airspace disease. MEDIASTINUM AND HILAR STRUCTURES: No masses. Contour normal. HEART AND VASCULAR STRUCTURES: Heart normal in size. Normal vasculature. BONES: No acute findings. HARDWARE: Stable nasogastric tube. OTHER: No other significant finding. IMPRESSION: DIFFUSE BILATERAL AIRSPACE DISEASE. NO CHANGE. TECHNICAL DOCUMENTATION: JOB ID: [id number] 2010 [employer]- All Rights Reserved Reading location - IP/workstation name: [email or web address]
[2020-02-12 10:00] LABS: HEMATOCRIT 24.2 % (36.0-47.0); MEAN CORPUSCULAR HEMOGLOBIN 33.9 pg (27.0-33.4); MEAN CORPUSCULAR HGB CONC 32.5 g/dL (32.0-36.0); MEAN CORPUSCULAR VOLUME 104 fl (80-97); RED BLOOD COUNT 2.32 10^6/uL (3.72-5.28); RED CELL DISTRIBUTION WIDTH 27.5 % (11.5-14.0); WHITE BLOOD COUNT 23.6 10^3/uL (4.0-10.5)
[2020-02-12 10:18] LABS: INTERNATIONAL RATION (INR) 3.42; PARTIAL THROMBOPLASTIN TIME 45.9 SEC (23.5-35.8); PROTHROMBIN TIME 34.3 SEC (11.4-15.4)
[2020-02-12 10:25] LABS: PLATELET COUNT 51 10^3/uL (150-450)
[2020-02-12 10:27] LABS: HEMOGLOBIN 7.9 g/dL (12.0-15.5)
[2020-02-12 10:30] LABS: ABSOLUTE LYMPHOCYTES# (MANUAL) 2.1 10^3/uL (0.5-4.7); BAND NEUTROPHILS % (MANUAL) 1 % (3-5); BASOPHILS % (MANUAL) 0 % (0-2); EOSINOPHILS % (MANUAL) 1 % (0-6); LYMPHOCYTES % (MANUAL) 8 % (13-45); MONOCYTES % (MANUAL) 0 % (3-13); NUCLEATED RED BLOOD CELLS 2 /100 WBC (0); SEGMENTED NEUTROPHILS % (MAN) 89 % (42-78); TOTAL CELLS COUNTED 100
[2020-02-12 10:33] LABS: ANISOCYTOSIS 3+; POIKILOCYTOSIS 2+; POLYCHROMASIA SLIGHT
[2020-02-12 10:34] LABS: BURR CELLS 2+; PLATELET COMMENT DECREASED; SCHISTOCYTES SLIGHT; TARGET CELLS SLIGHT; TEAR DROP CELLS 1+
[2020-02-12] MEDS ORDERED: FUROSEMIDE INJ/PF 40 MG/4 ML SDV ONE (10:41)
[2020-02-12] MEDS ORDERED: NORMAL SALINE 250 ML IV PRN ×2 (10:56)
[2020-02-12] MEDS: CEFEPIME HCL 2 GM in DEXTROSE 5%-WATER 50 ML IV SCH (10:57)
[2020-02-12] MEDS ORDERED: FUROSEMIDE INJ/PF 40 MG/4 ML SDV IV ONE ×2 (11:30→11:45)
--- NOTE | 2020-02-12 11:39 | PDOC PROGRESS REPORT ---
Subjective Progress Note for:: 02/12/20 Reason For Visit: Patient seen in the hospital today as I am taking over from Dr. Wright. Patient looks extremely moribund on BiPAP and she is fighting the machine as she looks like she is also possibly hyperventilating . Discussion was done with the nurse reveals that she has got a fever of 103 degrees in spite of being on cefepime and vancomycin . Chest x-ray done today was reviewed by me and shows bilateral diffuse infiltrates. Discussions were done with the treating nichole ivan who mentions that an ID consult was placed. Currently as of this morning her D5W has been discontinued because apparently of the chest x-ray finding and she has been given further IV Lasix by the hospitalist. Labs and medications were reviewedreveals that her sodium is still high at 164. Background history includes alcoholic cirrhosis as well as hyponatremia from overdiuresis, anemia and thrombocytopenia due to her severe liver disease. She has also developed bilateral infiltrates. These are being treated as infectious but may more likely be related to ARDS secondary to her liver failure. White blood cell count is still markedly elevated. Total bilirubin is still markedly a bnormal but is improved from her outpatient evaluation by [place] on January 20 when it was still 18. This is down from the total bilirubin level of 25 when she was admitted to [facility] on December 23. Been feeling poorly for likely 8 to 10 months and has had treatment of her hepatitis during the admission to [facility] on December [id number]. She was discharged on 01/07/2020. She had subsequent follow-up with her duck operator on 01/21/2020. She had multiple large-volume paracenteses during her hospitalization and on 01/30/2020 had an additional 5 L removed with an outpatient large-volume paracentesis. On February 05, 2020 the patient was brought to [facility]. Her mother found her on the floor obtunded at home. EMS was called. At that time her white blood cell count was markedly elevated as was her bilirubin. Ammonia level is 158. She was anemic and thrombocytopenic. Hemoglobin was 6 and over the course of her hospitalization she has received 3 units of packed red blood cells. She also received 2 units of platelets in an effort to increase her platelet count for paracentesis. Due to the coagulopathy we were unable to get the INR below 2.25 and this precluded paracentesis. She is being covered with antibiotic therapy for possible peritonitis as well as possible pneumonia. She did have 1+ blood culture for Serratia but the other blood culture set was negative. Unfortunately her sodium increased with overdiures. Physical Exam Vital Signs: Temp Pulse Resp BP Pulse Ox 97.8 F 137 H 42 H 132/69 H 96 02/12/20 08:38 02/12/20 07:12 02/12/20 08:00 02/12/20 07:12 02/12/20 08:00 Intake & Output 02/11/20 02/12/20 02/13/20 06:59 06:59 06:59 Intake Total 1217 1600 Output Total 1725 1560 Balance -508 40 Weight 49.9 kg 51.4 kg General appearance: PRESENT: disheveled Exam: Patient looks to be in quite distress on the BiPAP but she seems to be struggling and seems to show that she may be also having hyperventilation. She has got obvious marked ascites and she has got minimal edema over her feet but none over her ankles. She looks very thin and emaciated. Neck exam: ABSENT: lymphadenopathy, meningismus Respiratory exam: PRESENT: crackles, decreased breath sounds. ABSENT: rhonchi Cardiovascular exam: PRESENT: +S1, +S2 GI/Abdominal exam: PRESENT: ascites, distended, normal bowel sounds, soft. ABSENT: firm, guarding, mass, organomegaly, tenderness Extremities exam: PRESENT: pedal edema Neurological exam: PRESENT: altered Psychiatric exam: PRESENT: agitated Skin exam: ABSENT: erythema, mottled, rash Results Laboratory Results: 02/12/20 09:48 02/12/20 08:47 02/11/20 02/12/20 02/12/20 07:45 08:47 09:13 WBC RBC Hgb Hct MCV MCH MCHC RDW Plt Count Seg Neutrophils % Carbonic Acid 0.96 L HCO3/H2CO3 Ratio 20:1 ABG pH 7.40 ABG pCO2 32.0 L ABG pO2 96.0 ABG HCO3 19.3 L ABG O2 Saturation 97.4 ABG Base Excess -4.9 FiO2 100% Sodium 164.5 H Potassium 4.0 Chloride 133 H Carbon Dioxide 18 L Anion Gap 14 BUN 49 H Creatinine 1.16 Est GFR ( Amer) > 60 Glucose 167 H Lactic Acid 3.6 H Calcium 10.4 H Magnesium Total Bilirubin 12.7 H AST 65 H Alkaline Phosphatase 168 H Total Protein 7.5 Albumin 3.4 L 02/12/20 02/12/20 02/12/20 09:48 09:48 09:48 WBC 23.6 H RBC 2.32 L Hgb 7.9 L Hct 24.2 L MCV 104 H MCH 33.9 H MCHC 32.5 RDW 27.5 H Plt Count 51 L Seg Neutrophils % Not Reportable Carbonic Acid HCO3/H2CO3 Ratio ABG pH ABG pCO2 ABG pO2 ABG HCO3 ABG O2 Saturation ABG Base Excess FiO2 Sodium Potassium Chloride Carbon Dioxide Anion Gap BUN Creatinine Est GFR ( Amer) Glucose Lactic Acid 5.5 H Calcium Magnesium 2.3 Total Bilirubin AST Alkaline Phosphatase Total Protein Albumin Impressions: KUB X-Ray 02/09/20 07:40 IMPRESSION: Esophagogastric tube remains in the gastric lumen. Chest X-Ray 02/12/20 00:00 IMPRESSION: DIFFUSE BILATERAL AIRSPACE DISEASE. NO CHANGE. Assessment & Plan - Diagnosis (1) Acute hepatic encephalopathy Is this a current diagnosis for this admission?: Yes Plan: Being managed by hospitalist. Background history of alcoholic hepatitis/possible cirrhosis. (2) Hypernatremia Is this a current diagnosis for this admission?: Yes Plan: Current sodium today is 164. She needs free water. Free water deficit calculation is erroneous currently given her ascites and third spacing. Her free water deficit is smoke closer to 3-4 L. Clinical features including chest x-ray to me is not suggestive of congestive heart failure and I would be more in favor of giving her D5W. I would do a trial of IV Lasix as has been done by the hospitalist and repeat the chest x-ray to see if it has done anything to help clear any of the fluid in the lungs but if not, I would do have no hesitation in restarting the D5W. Discussed the implications of high sodium with the hospitalist. She however wants to wait and will decide later on if she wants to restart the D5W on her own. (3) Acute respiratory failure with hypoxia Is this a current diagnosis for this admission?: Yes Plan: Currently on BiPAP. She has got clinical features suggestive of diffuse pneumonic process. (4) Anemia Qualifiers: Anemia type: other cause Other causes of anemia: nutritional, unspecified Qualified Code(s): D53.9 - Nutritional anemia, unspecified Is this a current diagnosis for this admission?: Yes Plan: In association with thrombocytopenia and suggestive differential diagnosis includes portal hypertension. Variceal bleeding would most likely produce thrombocytosis unless associated portal hypertension as well. She has received multiple transfusions for low hemoglobin as well as thrombocytopenia and hemoglobin still remains low.Her coagulation profile is also abnormal which could be multifactorial including obviously the liver disease as well as sepsis/early septic shock. (5) Ascites due to alcoholic cirrhosis Is this a current diagnosis for this admission?: Yes (6) Coagulopathy Is this a current diagnosis for this admission?: Yes (7) Pneumonia of both lungs Qualifiers: Pneumonia type: due to unspecified organism Lung location: unspecified part of lung Qualified Code(s): J18.9 - Pneumonia, unspecified organism Is this a current diagnosis for this admission?: Yes Plan: Chest x-ray is suggestive for diffuse pneumonic process./Interstitial pathology. Her initial Covid test was negative but would recommend repeating it. (8) Blood bacterial culture positive Is this a current diagnosis for this admission?: Yes Plan: With sepsis. Blood culture grew 1/2 of Serratia sensitive to current cefepime. However she is also got diffuse pneumonic process in the lungs in an immunocompromised patient. (9) Septic shock Plan: Clinical features are suggestive of early septic shock given the features of diffuse pneumonia/fever with leukocytosis and left shift and gap acidosis with lactic acidosis. She is on broad-spectrum antibiotics but still features are suggestive of slowly worsening septic shock. She is currently on midodrine but not on any pressor agents at the moment.She is extremely critical at the moment and is awaiting transfer to a tertiary hospital. (10) Lactic acidosis Plan: Lactic acid today is 5.5 with gap acidosis.
[2020-02-12] MEDS ORDERED: PENTOXIFYLLINE 400 MG TABLET.SA PO SCH (14:00)
[2020-02-12] MEDS ORDERED: DEXTROSE 5%-WATER 1000 ML 1,000 ML IV PRN (14:22)
[2020-02-12 14:41] LABS: FLUID APPEARANCE HAZY; FLUID COLOR BROWN; FLUID SOURCE ASCITES; FLUID TYPE PERITONEAL; FLUID VISCOSITY LIQUID
--- NOTE | 2020-02-12 15:23 | PDOC TRANSFER SUMMARY ---
General Admission Date/PCP: 02/05/20 07:22 Admission Date: 02/05/20 Transfer Date: 02/12/20 Accepting Facility: [facility] Accepting Physician: Dr. Judy Giron Resuscitation Status: Full Code - Transfer Diagnosis (1) Acute hepatic encephalopathy Is this a current diagnosis for this admission?: Yes (2) Acute respiratory failure with hypoxia Is this a current diagnosis for this admission?: Yes (3) Anemia Is this a current diagnosis for this admission?: Yes (4) Ascites due to alcoholic cirrhosis Is this a current diagnosis for this admission?: Yes (5) Blood bacterial culture positive Is this a current diagnosis for this admission?: Yes (6) Coagulopathy Is this a current diagnosis for this admission?: Yes (7) Hyperammonemia Is this a current diagnosis for this admission?: Yes (8) Hypernatremia Is this a current diagnosis for this admission?: Yes (9) Lactic acidosis Is this a current diagnosis for this admission?: Yes (10) Neutrophilic leukocytosis Is this a current diagnosis for this admission?: Yes (11) Pneumonia of both lungs Is this a current diagnosis for this admission?: Yes (12) SBP (spontaneous bacterial peritonitis) Is this a current diagnosis for this admission?: Yes - Transfer Medications Home Medications: Buspirone HCl [Buspar 10 mg Tablet] 10 mg PO BID 02/05/20 Furosemide [Lasix 20 mg Tablet] 20 mg PO DAILY 02/05/20 Gabapentin [Neurontin 100 mg Capsule] 100 mg PO Q8 02/05/20 Lactulose [Cephulac Syrup 20 gm/30 ml Udcup] 45 ml PO BID 02/05/20 Midodrine HCl 10 mg PO TID 02/05/20 Pantoprazole Sodium [Protonix] 40 mg PO ACBRKFST 02/05/20 Prednisolone Sod Phosphate [Prelone Soln 15 mg/5 ml Oral Syring] 15 mg PO .ASDIR 02/05/20 Rifaximin [Xifaxan 550 mg Tablet] 550 mg PO BID 02/05/20 Spironolactone [Aldactone] 50 mg PO DAILY 02/05/20 Transfer Medications: Current Medications Buspirone HCl (Buspar 10 Mg Tablet) 10 mg PO BID NEPTALI Stop: 03/06/20 17:59 Last Admin: 02/11/20 17:29 Dose: 10 mg Documented by: Hydrophilic Ointment (Aquaphor W-Molly Heal Oint 50 Gm) 1 applic TOP BID [facility] Stop: 03/11/20 17:59 Last Admin: 02/11/20 17:29 Dose: 1 applic Documented by: Vancomycin HCl 750 mg/ (Dextrose) 250 mls @ 166.667 mls/hr IV QHS [facility] Stop: 02/17/20 21:59 Last Admin: 02/11/20 22:15 Dose: 166.67 mls/hr, 166.67 mls/hr Documented by: Cefepime HCl 2 gm/ Dextrose 50 mls @ 100 mls/hr IV Q12 [facility] Stop: 02/18/20 21:59 Last Admin: 02/12/20 10:57 Dose: 100 mls/hr Documented by: Acetaminophen (Ofirmev Inj/Pf 1000 Mg/100 Ml Sdv) 1,000 mg in 100 mls @ 400 mls/hr IV Q8HP PRN PRN Reason: FEVER Stop: 02/15/20 09:49 Dextrose (D5w 1000 Ml Iv Soln) 1,000 mls @ 75 mls/hr IV CONTINUOUS PRN PRN Reason: THIS MED IS NOT "PRN" Stop: 03/13/20 14:21 Metoprolol Tartrate (Lopressor Inj/Pf 5 Mg/5 Ml Sdv) 5 mg IV Q4HP PRN PRN Reason: HR>125 Stop: 03/11/20 23:54 Midodrine (Proamatine 5 Mg Tablet) 10 mg PO TID [facility] Stop: 03/06/20 17:59 Last Admin: 02/11/20 17:29 Dose: 10 mg Documented by: Pantoprazole Sodium (Protonix [address] Tablet) 40 mg PO ACBRKFST [facility] Stop: 03/07/20 07:59 Last Admin: 02/11/20 09:18 Dose: 40 mg Documented by: Pentoxifylline (Trental 400 Mg Tablet.Sa) 400 mg PO TID [facility] Stop: 03/13/20 13:59 Potassium Chloride (Potassium Chloride 20 Meq Packet) 20 meq NG Q8 [facility] Stop: 03/10/20 13:59 Last Admin: 02/12/20 05:52 Dose: 20 meq Documented by: Rifaximin (Xifaxan 550 Mg Tablet) 550 mg PO Q12 [facility] Stop: 02/12/20 21:59 Last Admin: 02/11/20 22:16 Dose: 550 mg Documented by: Sodium Chloride (Saline Flush 2.5 Ml Monoject Prefil Syrin) 2.5 ml IV Q8 NEPTALI Stop: 03/07/20 13:59 Last Admin: 02/12/20 05:52 Dose: 2.5 ml Documented by: - Allergies Allergies/Adverse Reactions: No Known Allergies Allergy (Verified 07/04/15 18:58) - Diet/Activity Discharge Diet: Other (Comments) - Currently n.p.o. Was going to initiate tube feeds Hospital Course Hospital Course: Ms. Berkley Ayala is a 34 year old woman with alcoholic cirrhosis with ascites who presented on 02/05/2020 with AMS (found obtunded at home by her mother, who called EMS). She was initially admitted to the ICU for treatment of presumed sepsis due to SBP. Upon presentation, she had hypercapnic respiratory failure, KORI (Cr 2.0), leukocytosis (WBC 25K), anemia (hgb 6), hyperammonemia (ammonia 158). BCx were obtained and she was started on broad spectrum IV antibiotics. Coagulopathy: Over the course of her hospitalization, she has received 3 units of packed red blood cells, 2 units of platelets and 8 units of FFP. Hgb was 7.9 and PLT 51 today today. Ascites due to alcoholic cirrhosis: Due to severe coagulopathy, paracentesis was not attempted until 02/12/2020, at which time IR was able to perform paracentesis with FFP, removing 4350 mL fluid (fluid studies pending). SBP: Her last paracentesis prior to this hospitalization was on 01/30/2020. She has been covered with broad spectrum antibiotic therapy for possible SBP as well as possible pneumonia with cefepime/vancomycin/rifaximin. 1 out of 2 BCx on admission grew Serratia marcescens and all other BCx thus far have shown NGTD. Hypernatremia: Unfortunately her sodium has steadily increased this admission (127-->164) due to combination of large volume fluid resuscitation and aggressive lactulose administration. She has been started on D5W. Hypernatremia is certainly contributing to ongoing AMS. Bilateral Lung Infiltrates: She has also developed bilateral lung infiltrates. These are being treated as infectious but may be related to ARDS secondary to liver failure. White blood cell count is still markedly elevated since admission. Total bilirubin is still markedly abnormal and she has a MELD score o f 32, putting her at >50% mortality in the next 3 months. Acute Hypoxemic and Hypercapnic Respiratory Failure: She has been maintained on CPAP with pressure of 12 at 100% FiO2. She was intubated prior to transport to [facility]. Acute hepatic encephalopathy: admitted with an ammonia level of 158, which improved with lactulose. She has a rectal tube in place due to aggressive lactulose administration. The patient was on rifaximin chronically. She remains altered today and is far from her baseline mental status prior to this hospitalization, although ongoing AMS likely due to multiple issues above. Neutrophilic leukocytosis: upon review of records from [facility], her white blood cell count has been elevated since discharge from [facility]. White blood cell count seems to be fl uctuating but no significant decrease noted despite aggressive treatment for possible infection. Hypokalemia: due to aggressive lactulose administration. K 4.0 today. KORI: due to hepatorenal syndrome +/- dehydration due to sepsis. Resolved with IVF administration. All images have been transferred to [facility] via [employer] Patient discussed with Dr. Garsia prior to transfer. Physical Exam Vital Signs: Temp Pulse Resp BP Pulse Ox 99.3 F 135 H 37 H 132/72 H 98 02/12/20 11:10 02/12/20 11:10 02/12/20 11:47 02/12/20 11:10 02/12/20 11:47 Intake & Output 02/11/20 02/12/20 02/13/20 06:59 06:59 06:59 Intake Total 1217 1600 0 Output Total 1725 1560 Balance -508 40 0 Weight 49.9 kg 51.4 kg General appearance: PRESENT: severe distress Eye exam: PRESENT: scleral icterus Mouth exam: PRESENT: dry mucosa Throat exam: ABSENT: post pharyngeal erythema Neck exam: PRESENT: JVD. ABSENT: lymphadenopathy Respiratory exam: PRESENT: accessory muscle use, crackles, rhonchi, tachypnea. ABSENT: wheezes Cardiovascular exam: PRESENT: tachycardia GI/Abdominal exam: PRESENT: ascites, distended, hyperactive bowel sounds, organolmegaly. ABSENT: firm, guarding, rebound, rigid Rectal exam: PRESENT: other - rectal tube Extremities exam: PRESENT: +2 edema Neurological exam: PRESENT: altered, other - awakens to voice, follows simple commands, not able to speak due to CPAP Psychiatric exam: PRESENT: anxious Skin exam: PRESENT: jaundice, petechiae Results Laboratory Results: 02/12/20 09:48 02/12/20 08:47 02/12/20 02/12/20 02/12/20 08:47 09:13 09:48 WBC 23.6 H RBC 2.32 L Hgb 7.9 L Hct 24.2 L MCV 104 H MCH 33.9 H MCHC 32.5 RDW 27.5 H Plt Count 51 L Seg Neutrophils % Not Reportable Carbonic Acid 0.96 L HCO3/H2CO3 Ratio 20:1 ABG pH 7.40 ABG pCO2 32.0 L ABG pO2 96.0 ABG HCO3 19.3 L ABG O2 Saturation 97.4 ABG Base Excess -4.9 FiO2 100% Sodium 164.5 H Potassium 4.0 Chloride 133 H Carbon Dioxide 18 L Anion Gap 14 BUN 49 H Creatinine 1.16 Est GFR ( Amer) > 60 Glucose 167 H Lactic Acid Calcium 10.4 H Magnesium Total Bilirubin 12.7 H AST 65 H Alkaline Phosphatase 168 H Ammonia Total Protein 7.5 Albumin 3.4 L Blood Type 02/12/20 02/12/20 02/12/20 09:48 09:48 11:32 WBC RBC Hgb Hct MCV MCH MCHC RDW Plt Count Seg Neutrophils % Carbonic Acid HCO3/H2CO3 Ratio ABG pH ABG pCO2 ABG pO2 ABG HCO3 ABG O2 Saturation ABG Base Excess FiO2 Sodium Potassium Chloride Carbon Dioxide Anion Gap BUN Creatinine Est GFR ( Amer) Glucose Lactic Acid 5.5 H Calcium Magnesium 2.3 Total Bilirubin AST Alkaline Phosphatase Ammonia 53.8 H Total Protein Albumin Blood Type 02/12/20 11:32 WBC RBC Hgb Hct MCV MCH MCHC RDW Plt Count Seg Neutrophils % Carbonic Acid HCO3/H2CO3 Ratio ABG pH ABG pCO2 ABG pO2 ABG HCO3 ABG O2 Saturation ABG Base Excess FiO2 Sodium Potassium Chloride Carbon Dioxide Anion Gap BUN Creatinine Est GFR ( Amer) Glucose Lactic Acid Calcium Magnesium Total Bilirubin AST Alkaline Phosphatase Ammonia Total Protein Albumin Blood Type O NEGATIVE Impressions: KUB X-Ray 02/09/20 07:40 IMPRESSION: Esophagogastric tube remains in the gastric lumen. Chest X-Ray 02/12/20 00:00 IMPRESSION: DIFFUSE BILATERAL AIRSPACE DISEASE. NO CHANGE. Plan Discharge Plan: transfer to [facility] for ongoing management and transplant evaluation Time Spent: Greater than 30 Minutes
[2020-02-12] MEDS: PANTOPRAZOLE SODIUM 40 MG TABLET.DR PO SCH (15:32)
[2020-02-12] MEDS: BUSPIRONE HCL 10 MG TABLET PO SCH (15:32)
[2020-02-12] MEDS: RIFAXIMIN 550 MG TABLET PO SCH (15:33)
[2020-02-12 15:49] LABS: ALBUMIN 3.3 g/dL (3.5-5.0); ALKALINE PHOSPHATASE 159 U/L (38-126); ANION GAP 13 (5-19); ASPARTATE AMINO TRANSFERASE 62 U/L (14-36); BILIRUBIN,DIRECT 8.2 mg/dL (0.0-0.4); BILIRUBIN,TOTAL 12.6 mg/dL (0.2-1.3); BLOOD UREA NITROGEN 50 mg/dL (7-20); CALCIUM 10.3 mg/dL (8.4-10.2); CARBON DIOXIDE 20 mmol/L (22-30); CHLORIDE 132 mmol/L (98-107); GLUCOSE 137 mg/dL (75-110); TOTAL PROTEIN 7.3 g/dL (6.3-8.2)
[2020-02-12] MEDS: MIDODRINE HCL 5 MG TABLET PO SCH (15:56)
[2020-02-12] MEDS: PANTOT AC/MIN OIL/PET HY-PHL OINT 50 GM TOP SCH (15:57)
[2020-02-12 16:10] VITALS: BP 125/71
--- NOTE | 2020-02-12 16:13 | RADIOLOGY REPORT (SQ) ---
EXAM DESCRIPTION: U/S ABD PARACENTESIS IMAGES COMPLETED DATE/TIME: 02/12/2020 3:55 pm REASON FOR STUDY: ASCITES, CIRRHOSIS COMPARISON None. LIMITATIONS: None. PROCEDURE: After obtaining informed consent from the patient's mother, a paracentesis at bedside was performed. Ultrasound was used to identify a prominent pocket of ascites in the right lower quadrant . An appropriate access site was selected. The patient was prepped and draped in usual sterile [facility] ion. The access site was anesthetized with 5 mL 1% lidocaine. A [id number] needle was advance d into the fluid. After aspiration of fluid the needle, the catheter was advanced off the needle int o the fluid. A total of 4,350 mL of dark ilana fluid was removed. The patient tolerated the procedur e well left the department in satisfactory condition. IMPRESSION: Successful ultrasound-guided paracentesis COMMENT: Patient medication list reviewed: Yes- Quality ID# [id number]:Eligible professional attests to doc umenting in the medical record they obtained, updated, or reviewed the patient's current medications. TECHNICAL DOCUMENTATION: JOB ID: [id number] [email or web address] Rights Reserved Reading location - IP/workstation name: [email or web address]
== END 2020-02-12 16:50 | disposition short-term general hospital (02) | DRG 432 ==
LOC: ER 05:41 → EH 07:22 → ICU 09:08 → 4N 02-08 19:19 → 3W 02-09 09:18
PROVIDERS: ADMIT Anesthesiology; ATTEND Hospitalist
PROC: 0DH67UZ Insertion of Feeding Device into Stomach, Via Natural or Artificial Opening (ICD-10-PCS; 2020-02-05)
PROC: 30233R1 Transfusion of Nonautologous Platelets into Peripheral Vein, Percutaneous Approach (ICD-10-PCS; 2020-02-07)
PROC: 5A09457 Assistance with Respiratory Ventilation, 24-96 Consecutive Hours, Continuous Positive Airway Pressure (ICD-10-PCS; principal; 2020-02-08)
PROC: 30233N1 Transfusion of Nonautologous Red Blood Cells into Peripheral Vein, Percutaneous Approach (ICD-10-PCS; 2020-02-08)
PROC: 30233L1 Transfusion of Nonautologous Fresh Plasma into Peripheral Vein, Percutaneous Approach (ICD-10-PCS; 2020-02-08)
PROC: 0W9G3ZZ Drainage of Peritoneal Cavity, Percutaneous Approach (ICD-10-PCS; 2020-02-12)
DX: K70.31 Alcoholic cirrhosis of liver with ascites (principal); K72.00 Acute and subacute hepatic failure without coma; J18.9 Pneumonia, unspecified organism; J96.01 Acute respiratory failure with hypoxia; K65.2 Spontaneous bacterial peritonitis; E43 Unspecified severe protein-calorie malnutrition; E72.20 Disorder of urea cycle metabolism, unspecified; E87.0 Hyperosmolality and hypernatremia; D68.9 Coagulation defect, unspecified; E87.2 Acidosis; N17.9 Acute kidney failure, unspecified; K70.11 Alcoholic hepatitis with ascites; E87.6 Hypokalemia; D53.9 Nutritional anemia, unspecified; B96.89 Other specified bacterial agents as the cause of diseases classified elsewhere; D72.828 Other elevated white blood cell count; F17.210 Nicotine dependence, cigarettes, uncomplicated; I95.9 Hypotension, unspecified; L89.156 Pressure-induced deep tissue damage of sacral region; Z79.899 Other long term (current) drug therapy; Z79.891 Long term (current) use of opiate analgesic; Z78.1 Physical restraint status
CPT/HCPCS: 36415; 36430; 36600; 49083; 71045; 74018; 80048; 80053; 80076; 81001; 82140; 82803; 82962; 83605; 83735; 84100; 85025; 85610; 85730; 86850; 86900; 86901; 86920; 87040; 87070; 87075; 87077; 87186; 87205; 87635; 89050; 93005; 93010; 94660; 96374; 99285; 99291; A9270-GY; C9113; C9803; J0692; J1940; J2310; J3010; J3360; J3370; J3430; J3475; J3480; J3490; J7030; J7060; P9016; P9017; P9035; P9047